=== PATIENT | male | born 1955 | race Caucasian/White ===

== ENCOUNTER 2019-05-29 19:34 | Inpatient (IN) | payer MEDICARE, OTHER ==
[~2019-05-29] VITALS: Ht 172.7 cm; Wt 90.7 kg
[2019-05-29 20:25] LABS: BASO # 0.1 x10^3/uL (0.0-0.2); BASO % 1 % (0-3); EOS # 0.2 x10^3/uL (0.0-0.7); EOS % 2 % (0-3); HEMATOCRIT 50.2 % (39.0-53.0); LYMPH # 1.9 x10^3/uL (1.0-4.8); LYMPH % 21 % (24-48); MEAN CORPUSCULAR HEMOGLOBIN 31 pg (25-35); MEAN CORPUSCULAR HGB CONC 34 g/dL (31-37); MEAN CORPUSCULAR VOLUME 91 fL (79-100); MONO % 11 % (0-9); NEUT # 5.9 x10^3uL (1.8-7.7); NEUT % 65 % (31-73); PLATELET COUNT 358 x10^3/uL (140-400); RED BLOOD COUNT 5.51 x10^6/uL (4.30-5.70); RED CELL DISTRIBUTION WIDTH 13.8 % (11.5-14.5); WHITE BLOOD COUNT 9.1 x10^3/uL (4.0-11.0)
[2019-05-29 20:39] LABS: ALBUMIN 4.2 g/dL (3.4-5.0); ALBUMIN/GLOBULIN RATIO 1.2 (1.0-1.7); CALCIUM 9.6 mg/dL (8.5-10.1); CREATININE 1.2 mg/dL (0.7-1.3); POTASSIUM 3.7 mmol/L (3.5-5.1); TOTAL BILIRUBIN 0.3 mg/dL (0.2-1.0); TOTAL PROTEIN 7.7 g/dL (6.4-8.2)
--- NOTE | 2019-05-29 20:40 | PHYS DOC ---
Past History Past Medical History: Anxiety, COPD, Diabetes, GERD, Migraines, Seizure, Schizophrenia Past Surgical History: Other Additional Past Surgical Histo: SURGICVAL HISTORY NOT INCLUDED IN PAPERWORK Additional Smoking Information: 1/2 PACK/DAY Alcohol Use: None Drug Use: None Adult General Chief Complaint Chief Complaint: PSYCH EVALUATION HPI HPI 64-year-old male presents for medical clearance of behavioral health admission. The patient reported to be acting out having insomnia, and having hallucinations. When asked if he has any medical complaints, the patient states that he has a chronically runny nose for many years but that's all. He denies fever or chills. Review of Systems Review of Systems Constitutional: Denies fever or chills [] Eyes: Denies change in visual acuity, redness, or eye pain [] HENT: Denies nasal congestion or sore throat. Nasal drainage [] Respiratory: Denies cough or shortness of breath [] Cardiovascular: No additional information not addressed in HPI [] GI: Denies abdominal pain, nausea, vomiting, bloody stools or diarrhea [] : Denies dysuria or hematuria [] Musculoskeletal: Denies back pain or joint pain [] Integument: Denies rash or skin lesions [] Neurologic: Denies headache, focal weakness or sensory changes [] Endocrine: Denies polyuria or polydipsia [] All other systems were reviewed and found to be within normal limits, except as documented in this note. Allergies Allergies Allergies Coded Allergies Type Severity Reaction Last Updated Verified No Known Drug Allergies 05/29/19 No Physical Exam Physical Exam Constitutional: Well developed, well nourished, no acute distress, non-toxic appearance. [] HENT: Normocephalic, atraumatic, bilateral external ears normal, oropharynx moist, no oral exudates, nose normal. [] Eyes: PERRLA, EOMI, conjunctiva normal, no discharge. [] Neck: Normal range of motion, no tenderness, supple, no stridor. [] Cardiovascular:Heart rate regular rhythm, no murmur [] Lungs & Thorax: Bilateral breath sounds clear to auscultation [] Abdomen: Bowel sounds normal, soft, no tenderness, no masses, no pulsatile masses. [] Skin: Warm, dry, no erythema, no rash. [] Back: No tenderness, no CVA tenderness. [] Extremities: No tenderness, no cyanosis, no clubbing, ROM intact, no edema. [] Neurologic: Alert and oriented X 3, normal motor function, normal sensory function, no focal deficits noted. [] Psychologic: Affect normal, judgement normal, mood normal. [] Current Patient Data Vital Signs Vital Signs Date Time Temp Pulse Resp B/P (MAP) Pulse Ox O2 Delivery O2 Flow Rate FiO2 05/29/19 19:45 97.6 100 20 98 Room Air Lab Results Laboratory Tests Test 05/29/19 19:55 White Blood Count 9.1 x10^3/uL (4.0-11.0) Red Blood Count 5.51 x10^6/uL (4.30-5.70) Hemoglobin 17.0 g/dL (13.0-17.5) Hematocrit 50.2 % (39.0-53.0) Mean Corpuscular Volume 91 fL (79-100) Mean Corpuscular Hemoglobin 31 pg (25-35) Mean Corpuscular Hemoglobin Concent 34 g/dL (31-37) Red Cell Distribution Width 13.8 % (11.5-14.5) Platelet Count 358 x10^3/uL (140-400) Neutrophils (%) (Auto) 65 % (31-73) Lymphocytes (%) (Auto) 21 % (24-48) L Monocytes (%) (Auto) 11 % (0-9) H Eosinophils (%) (Auto) 2 % (0-3) Basophils (%) (Auto) 1 % (0-3) Neutrophils # (Auto) 5.9 x10^3uL (1.8-7.7) Lymphocytes # (Auto) 1.9 x10^3/uL (1.0-4.8) Monocytes # (Auto) 1.0 x10^3/uL (0.0-1.1) Eosinophils # (Auto) 0.2 x10^3/uL (0.0-0.7) Basophils # (Auto) 0.1 x10^3/uL (0.0-0.2) EKG EKG Sinus rhythm, rate 95, leftward axis, no ST elevations or depressions.[] Radiology/Procedures Radiology/Procedures [] Course & Med Decision Making Course & Med Decision Making Pertinent Labs and Imaging studies reviewed. (See chart for details) The patient's EKG is unremarkable. His labs are unremarkable. His vitals are within normal limits. The patient has been unable to urinate forced because he went in the waiting room. I don't think his urinalysis will preclude his admission. He is medically stable for behavioral health admission at this time. [] Dragon Disclaimer Dragon Disclaimer This electronic medical record was generated, in whole or in part, using a voice recognition dictation system. Departure Departure: Impression: Primary Impression: Medical clearance for psychiatric admission Disposition: HOME/RESIDENCE PRIOR TO ADM Condition: STABLE Referrals: PCP,UNKNOWN (PCP) JOSUE WALSH DO May 29, 2019 20:40
[2019-05-29] MEDS ORDERED: MAGNESIUM HYDROXIDE 2,400 MG/30 ML ORAL.SUSP. PO PRN (22:45)
[2019-05-29] MEDS ORDERED: METHYL SALICYLATE/MENTHOL TOPICAL OINTMENT 57GM TUBE. TP PRN (22:45)
[2019-05-29] MEDS ORDERED: QUET50TA5 PO (23:07)
[2019-05-29] MEDS ORDERED: HALO5TAB PO (23:07)
[2019-05-29] MEDS ORDERED: MELO7.5T29 PO (23:07)
[2019-05-29] MEDS ORDERED: LORA-254 PO (23:07)
[2019-05-29] MEDS ORDERED: CYCL-331 PO (23:07)
[2019-05-29] MEDS ORDERED: PANT40TA5 PO (23:07)
[2019-05-29] MEDS ORDERED: MELA3TAB43 PO (23:07)
[2019-05-29] MEDS ORDERED: BENZ0.5T32 PO (23:07)
[2019-05-29] MEDS ORDERED: MULT-245 PO (23:07)
[2019-05-29] MEDS ORDERED: TOPI50TA38 PO (23:07)
[2019-05-29] MEDS ORDERED: METO25TA4 PO (23:07)
[2019-05-29] MEDS ORDERED: FURO-69 PO (23:07)
[2019-05-29] MEDS ORDERED: HALOPERIDOL 5 MG TABLET PO PRN (23:15)
[2019-05-29] MEDS ORDERED: MELATONIN 3 MG TABLET PO PRN (23:15)
[2019-05-29 23:40] VITALS: BP 149/88
[2019-05-29] MEDS ORDERED: IPRA3AMP29 NEB (23:59)
[2019-05-29] MEDS ORDERED: SUMA100T4 PO (23:59)
[2019-05-29] MEDS ORDERED: ASPI1TAB31 PO (23:59)
[2019-05-29] MEDS ORDERED: BUDE10.2 IH (23:59)
[2019-05-30] MEDS ORDERED: IBUP800T19 PO (00:05)
[2019-05-30] MEDS: MELATONIN 3 MG TABLET PO SCH ×2 (00:05→19:31)
[2019-05-30] MEDS: METOPROLOL TART IMMED RELEASE 25 MG TABLET PO SCH ×3 (00:06→19:31)
[2019-05-30] MEDS: CYCLOBENZAPRINE 10 MG TABLET. PO SCH ×2 (00:06→19:30)
[2019-05-30] MEDS: QUEtiapine 50 MG TABLET. PO SCH ×3 (00:06→19:32)
[2019-05-30] MEDS: HALOPERIDOL 5 MG TABLET PO SCH ×4 (00:07→19:30)
[2019-05-30] MEDS: TOPIRAMATE 25 MG TABLET. PO SCH ×3 (00:07→19:31)
[2019-05-30] MEDS: MELOXICAM 7.5 MG TABLET PO SCH ×3 (00:07→19:30)
[2019-05-30] MEDS ORDERED: IBUPROFEN 800 MG TABLET. PO PRN (00:15)
[2019-05-30 00:22] LABS: BACTERIA,URINE 0 /HPF (0-FEW); BILIRUBIN,URINE NEG (NEG); CLARITY,URINE CLEAR; COLOR,URINE YELLOW; GLUCOSE,URINE NEG (NEG); NITRITE,URINE NEG (NEG); RBC,URINE 0 /HPF (0-2); SQUAMOUS EPITHELIAL CELL,UR OCC /LPF; UROBILINOGEN,URINE 0.2 mg/dL (0.2 mg/dL); WBC,URINE RARE /HPF (0-4)
[2019-05-30 06:19] VITALS: BP 104/68
[2019-05-30] MEDS: LORazepam 0.5 MG TABLET PO SCH (08:11)
[2019-05-30] MEDS: MULTIVITAMIN with MINERAL TABLET. PO SCH (08:18)
[2019-05-30] MEDS: ACETAMINOPHEN 325 MG TABLET PO PRN (08:18)
[2019-05-30] MEDS: BENZTROPINE MESYLATE 0.5 MG TABLET PO SCH ×2 (08:18→19:32)
[2019-05-30] MEDS: NICOTINE 14MG PATCH. TD SCH (08:18)
[2019-05-30] MEDS: PANTOPRAZOLE 40 MG TABLET. PO SCH (08:19)
[2019-05-30] MEDS: FUROSEMIDE 20 MG TABLET PO SCH (08:19)
[2019-05-30] MEDS ORDERED: MELOXICAM 7.5 MG TABLET PO SCH (09:00)
[2019-05-30] MEDS ORDERED: METOPROLOL TART IMMED RELEASE 25 MG TABLET PO SCH (09:00)
[2019-05-30] MEDS ORDERED: TOPIRAMATE 25 MG TABLET. PO SCH (09:00)
[2019-05-30] MEDS ORDERED: QUEtiapine 50 MG TABLET. PO SCH (09:00)
[2019-05-30] MEDS: BUDESONIDE 0.5 MG/2 ML NEBU NEB SCH ×2 (09:34→21:27)
[2019-05-30] MEDS: IPRATRPIUM/ALBUTEROL 0.5/2.5MG 3 ML NEBU. NEB SCH ×3 (09:34→21:27)
--- NOTE | 2019-05-30 09:57 | EKG ---
[address] [address] Test Date: 2019-05-29 Test Time: 20:11:56 Pat Name: SILVANO BARBA Department: Room: [address] [place] [address] Gender: M Air Box Tester: : 1955 Requested By: JOSUE WALSH Order Number: [id number] Reading MD: Measurements Intervals [place] Rate: 95 P: 29 NM: 172 QRS: -71 QRSD: 84 T: 74 QT: 320 QTc: 405 Interpretive Statements SINUS RHYTHM ABNORMAL LEFT AXIS DEVIATION LEFT ANTERIOR FASCICULAR BLOCK T ABNORMALITY IN HIGH LATERAL LEADS ABNORMAL ECG RI6.01 No previous ECG available for comparison
[2019-05-30 16:06] VITALS: BP 132/86
[2019-05-30] MEDS: SUMAtriptan SUCCINATE 50 MG TABLET PO PRN (19:30)
--- NOTE | 2019-05-30 19:53 | PDOC ---
Exam Note: Bennett Note: Please also refer to the separate dictated note~for this date of service dictated separately. Discussed the patient with Nursing staff reviewed the chart.~Reviewed interim history and current functioning. Reviewed vital signs,~Labs/ Radiology~and current medications noted below. Continue current treatment with the changes noted in the dictated addendum note Assessment: Vital Signs/I&O: Vital Signs Date Time Temp Pulse Resp B/P (MAP) Pulse Ox O2 Delivery O2 Flow Rate FiO2 05/30/19 19:31 89 132/86 05/30/19 16:06 97.9 20 99 Nasal Cannula 4.0 I & O 05/29/19 05/29/19 05/30/19 15:00 23:00 07:00 Intake Total 0 ml Balance 0 ml Labs: Laboratory Tests Test 05/29/19 19:55 05/29/19 22:50 White Blood Count 9.1 x10^3/uL (4.0-11.0) Red Blood Count 5.51 x10^6/uL (4.30-5.70) Hemoglobin 17.0 g/dL (13.0-17.5) Hematocrit 50.2 % (39.0-53.0) Mean Corpuscular Volume 91 fL (79-100) Mean Corpuscular Hemoglobin 31 pg (25-35) Mean Corpuscular Hemoglobin Concent 34 g/dL (31-37) Red Cell Distribution Width 13.8 % (11.5-14.5) Platelet Count 358 x10^3/uL (140-400) Neutrophils (%) (Auto) 65 % (31-73) Lymphocytes (%) (Auto) 21 % (24-48) L Monocytes (%) (Auto) 11 % (0-9) H Eosinophils (%) (Auto) 2 % (0-3) Basophils (%) (Auto) 1 % (0-3) Neutrophils # (Auto) 5.9 x10^3uL (1.8-7.7) Lymphocytes # (Auto) 1.9 x10^3/uL (1.0-4.8) Monocytes # (Auto) 1.0 x10^3/uL (0.0-1.1) Eosinophils # (Auto) 0.2 x10^3/uL (0.0-0.7) Basophils # (Auto) 0.1 x10^3/uL (0.0-0.2) Sodium Level 136 mmol/L (136-145) Potassium Level 3.7 mmol/L (3.5-5.1) Chloride Level 100 mmol/L (98-107) Carbon Dioxide Level 23 mmol/L (21-32) Anion Gap 13 (6-14) Blood Urea Nitrogen 15 mg/dL (8-26) Creatinine 1.2 mg/dL (0.7-1.3) Estimated GFR (Cockcroft-Gault) 61.0 BUN/Creatinine Ratio 13 (6-20) Glucose Level 153 mg/dL (70-99) H Calcium Level 9.6 mg/dL (8.5-10.1) Magnesium Level 2.0 mg/dL (1.8-2.4) Total Bilirubin 0.3 mg/dL (0.2-1.0) Aspartate Amino Transferase (AST) 13 U/L (15-37) L Alanine Aminotransferase (ALT) 14 U/L (16-63) L Alkaline Phosphatase 79 U/L (46-116) Total Protein 7.7 g/dL (6.4-8.2) Albumin 4.2 g/dL (3.4-5.0) Albumin/Globulin Ratio 1.2 (1.0-1.7) Urine Collection Type Unknown Urine Color Yellow Urine Clarity Clear Urine pH 6.0 Urine Specific Kinsley <=1.005 Urine Protein Neg (NEG-TRACE) Urine Glucose (UA) Neg mg/dL (NEG) Urine Ketones (Stick) Neg mg/dL (NEG) Urine Blood Neg (NEG) Urine Nitrite Neg (NEG) Urine Bilirubin Neg (NEG) Urine Urobilinogen Dipstick 0.2 mg/dL (0.2 mg/dL) Urine Leukocyte Esterase Neg (NEG) Urine RBC 0 /HPF (0-2) Urine WBC Rare /HPF (0-4) Urine Squamous Epithelial Cells Occ /LPF Urine Bacteria 0 /HPF (0-FEW) Current Medications: Meds: Current Medications Medications (Trade) Dose Ordered Sig/Chris Route PRN Reason Start Time Stop Time Status Last Admin Dose Admin Acetaminophen (Tylenol) 650 mg PRN Q6HRS PRN PO PAIN / TEMP 05/29/19 22:45 05/30/19 08:18 Nicotine (Nicoderm Cq 14mg) 1 patch DAILY TD 05/30/19 09:00 05/30/19 08:18 Benztropine Mesylate (Cogentin) 0.5 mg BID PO 05/30/19 09:00 05/30/19 19:32 Furosemide (Lasix) 20 mg DAILY PO 05/30/19 09:00 05/30/19 08:19 Lorazepam (Ativan) 0.5 mg DAILY PO 05/30/19 09:00 05/30/19 08:11 Pantoprazole Sodium (Protonix) 40 mg DAILYAC PO 05/30/19 07:30 05/30/19 08:19 Multivitamins/ Calcium (Thera-M Plus) 1 tab DAILY PO 05/30/19 09:00 05/30/19 08:18 Haloperidol (Haldol) 5 mg TID PO 05/30/19 00:00 05/30/19 19:30 Cyclobenzaprine HCl (Flexeril) 10 mg HS PO 05/30/19 00:00 05/30/19 19:30 Melatonin (Melatonin) 9 mg HS PO 05/30/19 00:00 05/30/19 19:31 Meloxicam (Mobic) 7.5 mg BID PO 05/30/19 00:00 06/05/19 09:01 05/30/19 19:30 Metoprolol Tartrate (Lopressor) 25 mg BID PO 05/30/19 00:00 05/30/19 19:31 Quetiapine Fumarate (SEROquel) 150 mg BID PO 05/30/19 00:00 05/30/19 19:32 Topiramate (Topamax) 50 mg BID PO 05/30/19 00:00 05/30/19 19:31 Albuterol/ Ipratropium (Duoneb) 3 ml TID NEB 05/30/19 09:00 05/30/19 15:25 Budesonide (Pulmicort) 0.5 mg RTBID NEB 05/30/19 08:00 05/30/19 09:34 Sumatriptan Succinate (Imitrex) 100 mg PRN DAILY PRN PO MIGRAINE HEADACHE 05/30/19 00:15 05/30/19 19:30 I have reviewed the current psychotropics carefully including drug interactions. Risk benefit ratio favors no change other than as noted in my dictated progress note. Diagnosis: Problems: (1) Anxiety disorder (2) Alcoholic psychosis (3) Schizoaffective disorder, chronic condition with acute exacerbation (4) Obsessive compulsive disorder AUGUSTIN QUINTERO MD May 30, 2019 19:53
[2019-05-30] MEDS ORDERED: CYCLOBENZAPRINE 10 MG TABLET. PO SCH (21:00)
[2019-05-30] MEDS ORDERED: MELATONIN 3 MG TABLET PO SCH (21:00)
[2019-05-30 21:06] LABS: THYROXINE 7.9 ug/dL (4.5-12.0)
[2019-05-30 21:37] LABS: THYROID STIM HORMONE (TSH) 2.706 uIU/mL (0.358-3.740)
[2019-05-31 00:07] LABS: HEMOGLOBIN A1C 6.7 % (4.8-5.6)
[2019-05-31] MEDS: IPRATRPIUM/ALBUTEROL 0.5/2.5MG 3 ML NEBU. NEB SCH ×3 (05:20→20:57)
[2019-05-31 06:32] VITALS: BP 109/64
[2019-05-31] MEDS: FLUTICASONE 50MCG/NASAL SPRAY 16GM BOTTLE. NS SCH (08:19)
[2019-05-31] MEDS: METOPROLOL TART IMMED RELEASE 25 MG TABLET PO SCH ×2 (08:20→20:11)
[2019-05-31] MEDS: TOPIRAMATE 25 MG TABLET. PO SCH ×2 (08:20→20:11)
[2019-05-31] MEDS: HALOPERIDOL 5 MG TABLET PO SCH ×3 (08:20→20:12)
[2019-05-31] MEDS: LORazepam 0.5 MG TABLET PO SCH (08:21)
[2019-05-31] MEDS: QUEtiapine 50 MG TABLET. PO SCH ×2 (08:21→20:13)
[2019-05-31] MEDS: CETIRIZINE HCL 10 MG TABLET PO SCH (08:21)
[2019-05-31] MEDS: FUROSEMIDE 20 MG TABLET PO SCH (08:21)
[2019-05-31] MEDS: PANTOPRAZOLE 40 MG TABLET. PO SCH (08:22)
[2019-05-31] MEDS: MULTIVITAMIN with MINERAL TABLET. PO SCH (08:22)
[2019-05-31] MEDS: MELOXICAM 7.5 MG TABLET PO SCH ×2 (08:22→20:11)
[2019-05-31] MEDS: BENZTROPINE MESYLATE 0.5 MG TABLET PO SCH (08:25)
[2019-05-31] MEDS: NICOTINE 14MG PATCH. TD SCH (09:00)
--- NOTE | 2019-05-31 09:16 | CONS ---
DATE OF CONSULTATION: 05/30/2019 REASON FOR CONSULTATION: Medical management. HISTORY OF PRESENT ILLNESS: The patient is a 64-year-old male patient, a resident at [facility], who was admitted on account of increased agitation, insomnia. He hears voices that tell him to do bad things, paranoid thoughts that cause distress and anxiety. He has refused to eat at times. If he does not get to the hospital, he was feeling suicidal, although denied any suicidal ideation, all this in a background of schizoaffective disorder, mixed with psychotic features and impulse control. PAST MEDICAL HISTORY: Significant for hypertension, COPD, gastroesophageal reflux disease, seizure disorder, type 2 diabetes and migraine headaches. PAST PSYCHIATRIC HISTORY: Significant for anxiety, major depressive disorder and schizoaffective disorder. PAST SURGICAL HISTORY: Significant for tonsillectomy. ALLERGIES: He has no known drug allergies. MEDICATIONS: He is currently on following medications: He is on ibuprofen 800 mg every 8 hours p.r.n. as needed for pain, albuterol/ipratropium in 3 mL by nebulizer 3 times a day, multivitamin with calcium 1 tablet once a day, lorazepam 0.5 mg daily, furosemide 20 mg daily, benztropine mesylate, Cogentin 0.5 mg twice a day, Nicoderm patch 14 mg topically once a day, Pulmicort 0.5 mg by nebulizer twice a day, Protonix 40 mg once a day, sumatriptan 100 mg daily p.r.n. for migraine headache, Excedrin Migraine 2 tablets daily p.r.n. for migraine headache, topiramate 50 mg twice a day, quetiapine fumarate for Seroquel 150 mg twice a day, metoprolol tartrate 25 mg p.o. b.i.d. He is on meloxicam 7.5 mg twice a day, melatonin 9 mg at bedtime, cyclobenzaprine 10 mg at bedtime, Haldol 5 mg 3 times a day, magnesium hydroxide for milk of magnesia 30 mL p.o. daily p.r.n. for constipation, and Mylanta 15 mL after meals and as needed. FAMILY HISTORY: He has no brothers and sisters. Both parents are . SOCIAL HISTORY: He is currently a resident at [facility] for the last 5 years. He continued to smoke. He used to be a heavy drinker, now drinks one beer once a week. REVIEW OF SYSTEMS: The patient stated that he has cataracts bilaterally, although did not require any surgical intervention. Denied any glaucoma or macular degeneration. Denied any earache, tinnitus or sensorineural deafness. Denied any nosebleeds. Did complain of nasal dripping and occasional greenish nasal discharge. Denied any sore throat, sore tongue, toothache, hoarseness of voice or difficulty swallowing. Denied any nausea, vomiting, diarrhea or constipation. Denied any hematemesis, melena, hematochezia. Denied any dysuria, frequency or hematuria. Denied any chest pain, shortness of breath, orthopnea, paroxysmal nocturnal dyspnea. Denied any cough, phlegm or hemoptysis. Does complain of dyspnea on exertion. He is on 2 liters of oxygen at bedtime and 4 liters during daytime as needed. PHYSICAL EXAMINATION: GENERAL: When I examined him this afternoon, he was sitting at the edge of the bed comfortably in no apparent distress. He was somewhat suffused, but there was no pallor, jaundice, cyanosis or thyromegaly. No jugular venous distention. No limb edema. VITAL SIGNS: His heart rate was 77, blood pressure was 104/68, temperature was 96.9, respiratory rate was 24, and oxygen saturation was 96% on 2 liters of oxygen. HEAD, EYES, EARS, NOSE AND THROAT: Showed normocephalic, atraumatic. NECK: Supple. HEART: Showed normal first and second heart sounds with no gallop or murmur. CHEST: Clear to auscultation. No crepitation or rhonchi. ABDOMEN: Distended, soft, nontender. NEUROLOGIC: He was awake, alert, responding appropriately. All cranial nerves intact. EXTREMITIES: He moves extremities without difficulty. He is mostly bed bound, wheelchair bound. He stated that he can ambulate for a short distance but was extremely short of breath. LABORATORY DATA: His lab work on admission showed a white cell count of 9100, hemoglobin 17, hematocrit 50, MCV 91, and platelet count 358,000. His serum sodium was 136, potassium 3.7, chloride 100, bicarbonate 23, anion gap of 13, BUN 15, creatinine 1.2, estimated GFR was 61 mL per minute. His glucose was 153, calcium was 9.6, magnesium 2. Total bilirubin, AST, ALT, alkaline phosphatase were normal. Total protein was 7.7, albumin was 4.2. His urinalysis showed the urine was yellow, clear with a pH of 6, specific gravity 1.005. The urine was negative for protein, glucose, ketones, blood, nitrite, bilirubin, leukocyte esterase. There are no rbc's, no wbc's, and no bacteria. ASSESSMENT AND PLAN: In summary, this is a 64-year-old male patient, a resident at [facility], who was admitted on account of increased agitation, insomnia, hears voices that tell him to do bad things, paranoid thoughts that caused distress, anxious, refused to eat at times. If he does not get to the hospital, he would feel suicidal, all this in a background of schizoaffective disorder, mixed with psychotic features and impulse control disorder. Medically, he is known to have high blood pressure, chronic obstructive pulmonary disease, gastroesophageal reflux disease, seizure disorder, type 2 diabetes, migraine headaches. All in all, the patient seems to be medically stable. I will start him on Flonase for his constant nasal dripping as well as Claritin or Zyrtec. He is on multiple anti-inflammatory medications, including meloxicam and ibuprofen and this obviously can have side effects that in the long run can be harmful. I will also follow his lab works that are still pending and make any necessary recommendation. Thank you, Dr. Smiley for allowing me to participate in the care of this patient. RENE MACIAS MD DR: TAMMY/junior JOB#: [id number] / [id number]
[2019-05-31] MEDS: BUDESONIDE 0.5 MG/2 ML NEBU NEB SCH ×2 (10:07→20:57)
--- NOTE | 2019-05-31 12:31 | RAD ---
STUDY: CT head without contrast INDICATION: Hallucinations. COMPARISON: None. TECHNIQUE: Axial CT imaging through the head without the use of intravenous contrast. Sagittal and coronal reformats were obtained. One or more of the following individualized dose reduction techniques were utilized for this examination: 1. Automated exposure control 2. Adjustment of the mA and/or kV according to patient size 3. Use of iterative reconstruction technique. FINDINGS: No nugent-white matter differentiation loss is identified. No mass effect, midline shift or hydrocephalus. No acute intracranial hemorrhage. Unremarkable scalp and orbits. Normally aerated mastoid air cells and visualized paranasal sinuses. The calvarium is intact. IMPRESSION: No acute intracranial abnormality by CT. Electronically signed by: SWAPNIL NIX MD (05/31/2019 12:28 PM) [facility]
[2019-05-31 15:42] VITALS: BP 114/76
--- NOTE | 2019-05-31 15:45 | HP ---
ADMIT DATE: 05/29/2019 PSYCHIATRIC PROGRESS NOTE This late entry 05/30/2019 covers elements not covered in my initial note. IDENTIFYING DATA: The patient is a 64-year-old male referred to us from [facility] by his primary care physician on account of increasing agitation, marked insomnia, hearing voices that tell him to do bad things. Reportedly, the patient has had paranoid thought that caused distress. He has been anxious, refusing to eat at times and expressing suicidal ideation. The patient's behaviors have been dangerous really concerning to the staff at the facility given the suicidal ideation, having failed outpatient psychiatric interventions. He is referred for inpatient psychiatric stabilization. CHIEF COMPLAINT: "I have been hearing voices for about 10-15 years. I used to drink very heavy in the past and yes I have had blackouts, hallucinations, shakes with the alcohol. I have not had anything to drink for some time." HISTORY OF PRESENT ILLNESS: The patient reportedly has a history of schizoaffective disorder, bipolar type, mixed with psychotic features. He describes himself as being quite obsessive and states the voices are inside his head with ruminative thinking, which perseverates and magnifies itself to where it seems real voices to him. He has had significant insomnia, marked mood vacillation. No active suicidal or homicidal ideation. He does have fleeting suicidal ideation and felt overwhelmed with the at the facility. PAST PSYCHIATRIC HISTORY: As above. MEDICAL HISTORY: Hypertension, COPD, GERD, seizure disorder, type 2 diabetes mellitus, migraine headaches. Accu-Cheks b.i.d. DIET: Carb control. Takes medications whole. Ambulates wheelchair, can self-propel. CODE STATUS: Full code. ALLERGIES: Negative. CURRENT PSYCHOTROPICS: Ativan 0.25 mg daily at 0600, 1100; Haldol 5 mg 3 times a day, melatonin 9 mg at bedtime, Seroquel 150 b.i.d., Cogentin 0.5 mg b.i.d., Topamax 50 mg b.i.d. FAMILY HISTORY: Noncontributory. SOCIAL HISTORY: Alcohol abuse noted above and he also admits to smoking marijuana. No physical, sexual or elder abuse history is noted. Not known to be a perpetrator. REACTION TO HOSPITALIZATION: The patient accepting of it. ASSETS: Stable living at the facility. MENTAL STATUS EXAMINATION: The patient was seen individually in the evening of 05/30/2019. I met with him at length in his room. He is reasonably oriented. Speech has some latency, often responses monosyllabic, coherent. Abstraction fair, computation impaired, language function intact. Mood is somewhat dysphoric, depressed, anxious, withdrawn. No active suicidal or homicidal ideation. Attention span short. IMPRESSION: Schizoaffective disorder, bipolar type, mixed with psychotic features with acute exacerbation of obsessive compulsive disorder; history of alcohol dependence, in partial remission; anxiety disorder, unspecified. Rest as above. PLAN: Admit to geropsychiatry unit at [facility]. I will see the patient daily individually from a psychiatric standpoint. Medical follow up with Dr. Jordan. Given his active questionable psychotic symptoms, we will have a CT head done without contrast if one has not been done recently, observe him baseline, then adjust psychotropics as clinically indicated. He may benefit from being treated for his OCD symptoms. Perhaps Luvox may be an option while adjusting the Seroquel and Haldol and may consider mood stabilizers as well depending on the results from the baseline assessment. ESTIMATED LENGTH OF STAY: 10-12 days. DISPOSITION: Plans back to [facility] when stable. MAN Keisha QUINTERO MD DR: MADI/junior JOB#: [id number] / [id number]
[2019-05-31] MEDS: CHOLECALCIFEROL (VITAMIN D3) 50,000 UNIT CAPSULE PO SCH (18:40)
--- NOTE | 2019-05-31 19:52 | PDOC ---
Exam Note: Bennett Note: Please also refer to the separate dictated note~for this date of service dictated separately.~Patient seen individually. Discussed the patient with Nursing staff reviewed the chart.~Reviewed interim history and current functioning. Reviewed vital signs,~Labs/ Radiology~and current medications noted below. Continue current treatment with the changes noted in the dictated addendum note Assessment: Vital Signs/I&O: Vital Signs Date Time Temp Pulse Resp B/P (MAP) Pulse Ox O2 Delivery O2 Flow Rate FiO2 05/31/19 15:42 97.6 94 18 114/76 (89) 96 05/31/19 10:35 Nasal Cannula 2.0 I & O 05/30/19 05/30/19 05/31/19 15:00 23:00 07:00 Intake Total 960 ml 600 ml Balance 960 ml 600 ml Current Medications: Meds: Current Medications Medications (Trade) Dose Ordered Sig/Chris Route PRN Reason Start Time Stop Time Status Last Admin Dose Admin Cetirizine HCl (ZyrTEC) 10 mg DAILY PO 05/31/19 09:00 05/31/19 08:21 Fluticasone Propionate (Flonase) 2 spray DAILY NS 05/31/19 09:00 05/31/19 08:19 Vitamin D (Vitamin D3) 50,000 unit WEEKLY PO 05/31/19 18:00 05/31/19 18:40 I have reviewed the current psychotropics carefully including drug interactions. Risk benefit ratio favors no change other than as noted in my dictated progress note. Diagnosis: Problems: (1) Anxiety disorder (2) Alcoholic psychosis (3) Schizoaffective disorder, chronic condition with acute exacerbation (4) Obsessive compulsive disorder AUGUSTIN QUINTERO MD May 31, 2019 19:52
[2019-05-31] MEDS: MELATONIN 3 MG TABLET PO SCH (20:11)
[2019-05-31] MEDS: CYCLOBENZAPRINE 10 MG TABLET. PO SCH (20:11)
[2019-05-31] MEDS: SUMAtriptan SUCCINATE 50 MG TABLET PO PRN (20:18)
[2019-05-31] MEDS ORDERED: guaiFENesin DM 200MG/20MG 10 ML SYRUP PO PRN (20:45)
[2019-06-01] MEDS: IPRATRPIUM/ALBUTEROL 0.5/2.5MG 3 ML NEBU. NEB SCH ×3 (05:38→20:53)
[2019-06-01] MEDS: BUDESONIDE 0.5 MG/2 ML NEBU NEB SCH ×2 (05:38→20:00)
[2019-06-01 05:47] VITALS: BP 101/67
[2019-06-01] MEDS: LORazepam 0.5 MG TABLET PO SCH (08:33)
[2019-06-01] MEDS: PANTOPRAZOLE 40 MG TABLET. PO SCH (08:33)
[2019-06-01] MEDS: METOPROLOL TART IMMED RELEASE 25 MG TABLET PO SCH ×2 (08:35→19:45)
[2019-06-01] MEDS: FUROSEMIDE 20 MG TABLET PO SCH (08:35)
[2019-06-01] MEDS: HALOPERIDOL 5 MG TABLET PO SCH ×2 (08:35→19:45)
[2019-06-01] MEDS: NICOTINE 14MG PATCH. TD SCH ×2 (08:36→08:49)
[2019-06-01] MEDS: CETIRIZINE HCL 10 MG TABLET PO SCH (08:36)
[2019-06-01] MEDS: MELOXICAM 7.5 MG TABLET PO SCH ×2 (08:36→19:44)
[2019-06-01] MEDS: MULTIVITAMIN with MINERAL TABLET. PO SCH (08:36)
[2019-06-01] MEDS: TOPIRAMATE 25 MG TABLET. PO SCH ×2 (08:36→19:45)
[2019-06-01] MEDS: QUEtiapine 50 MG TABLET. PO SCH ×2 (08:36→19:45)
[2019-06-01] MEDS: FLUTICASONE 50MCG/NASAL SPRAY 16GM BOTTLE. NS SCH (08:57)
[2019-06-01] MEDS ORDERED: BENZTROPINE MESYLATE 0.5 MG TABLET PO SCH (09:00)
--- NOTE | 2019-06-01 10:42 | PN ---
DATE: 05/31/2019 PSYCHIATRIC PROGRESS NOTE This late entry 05/31/2019 covers elements not covered in my initial note. SUBJECTIVE: I met with the patient in the evening. Per ALICJA Valentin, the patient is alert, oriented x 4. Appetite 80%, slept 4-1/2 hours previous night. We did do a CT head, no acute changes noted. He did take a nap in the evening, pleasant, withdrawn. REVIEW OF SYSTEMS: Ambulation impaired, in wheelchair. No CV, , pulmonary, eye, ENT system symptoms on review. MENTAL STATUS EXAM: Oriented reasonably. Speech has some latency, coherent. Abstraction fair, computation impaired, language function intact. Mood and affect withdrawn. LABORATORY DATA: Reviewed. IMPRESSION: Schizoaffective disorder, bipolar type, mixed with psychotic features, obsessive-compulsive disorder; anxiety disorder, unspecified. Rest unchanged from admission. PLAN: The patient is currently on Haldol 5 mg t.i.d. We will reduce to b.i.d. for 2 days, once a day for 2 days and then stop it. I had initially considered tapering the Cogentin since it appeared to have been for the EPS from Haldol, but on further questioning, the patient states he started Cogentin for tremors, even before the Haldol was initiated. As at the time of this dictation, we will therefore undo that order. He remains somewhat obsessive, ruminative. We will start Luvox 25 mg a day for 3 days, then 50 mg a day thereafter. MENTAL STATUS EXAMINATION: Reasonably oriented. Speech has some latency, coherent. Abstraction fair, computation somewhat impaired, language function intact. Mood and affect withdrawn. IMPRESSION: Unchanged from initial note. PLAN: As noted above. MAN Keisha QUINTERO MD DR: MADI/junior JOB#: [id number] / [id number]
--- NOTE | 2019-06-01 10:50 | PN ---
DATE: 06/01/2019 PSYCHIATRIC PROGRESS NOTE This note covers elements not covered in my initial note of 06/01/2019. SUBJECTIVE: I met with the patient in the morning. Overall, per nursing report, the patient slept 7-1/4 hours previous night. He remains somewhat withdrawn, but otherwise appropriate. Still has the obsessive thinking and ruminative thinking, which mass grades as possible hallucinations. REVIEW OF SYSTEMS: Ambulation impaired, in wheelchair. No CV, , pulmonary, eye system symptoms on review. MENTAL STATUS EXAM: Reasonably oriented. Speech is coherent, abstraction fair, computation impaired, language function intact. Mood and affect somewhat withdrawn. LABORATORY DATA: Reviewed. IMPRESSION: Schizoaffective disorder, bipolar type, mixed with psychotic features, obsessive-compulsive disorder; anxiety disorder, unspecified. Rest unchanged. PLAN: We will undo the Cogentin taper for reasons noted in my prior note. Initiate Luvox increasing gradually, taper the Haldol. Rest unchanged for now. MAN Keisha QUINTERO MD DR: MADI/junior JOB#: [id number] / [id number]
[2019-06-01] MEDS: SUMAtriptan SUCCINATE 50 MG TABLET PO PRN (15:03)
[2019-06-01 16:14] VITALS: BP 111/63
--- NOTE | 2019-06-01 18:01 | RAD ---
CHEST AP ONLY History: Cough, diminished lung sounds Comparison: None. Findings: Single view of the chest is submitted. Cardiac silhouette is within normal limits. There is mild linear bibasilar opacity likely mild atelectasis. There is no dependent pleural fluid or pneumothorax. There is suspected emphysema. Impression: 1. There is probable emphysema. There is mild bibasilar atelectasis. Electronically signed by: Aris Marquis MD (06/01/2019 5:58 PM) [facility]
[2019-06-01] MEDS: MELATONIN 3 MG TABLET PO SCH (19:44)
[2019-06-01] MEDS: CYCLOBENZAPRINE 10 MG TABLET. PO SCH (19:44)
[2019-06-01] MEDS: BENZTROPINE MESYLATE 0.5 MG TABLET PO SCH (19:46)
[2019-06-01] MEDS: ACETAMINOPHEN 325 MG TABLET PO PRN (20:01)
--- NOTE | 2019-06-01 20:37 | PDOC ---
Exam Note: Bennett Note: Please also refer to the separate dictated note~for this date of service dictated separately.~Patient seen individually. Discussed the patient with Nursing staff reviewed the chart.~Reviewed interim history and current functioning. Reviewed vital signs,~Labs/ Radiology~and current medications noted below. Continue current treatment with the changes noted in the dictated addendum note Assessment: Vital Signs/I&O: Vital Signs Date Time Temp Pulse Resp B/P (MAP) Pulse Ox O2 Delivery O2 Flow Rate FiO2 06/01/19 19:45 82 111/63 06/01/19 16:14 97.5 18 94 06/01/19 14:50 Room Air 06/01/19 05:38 6.0 I & O 05/31/19 05/31/19 06/01/19 15:00 23:00 07:00 Intake Total 960 ml 480 ml Balance 960 ml 480 ml Current Medications: Meds: Current Medications Medications (Trade) Dose Ordered Sig/Chris Route PRN Reason Start Time Stop Time Status Last Admin Dose Admin Benztropine Mesylate (Cogentin) 0.5 mg DAILY PO 06/01/19 09:00 06/04/19 08:59 06/01/19 08:34 Haloperidol (Haldol) 5 mg BID PO 05/31/19 21:00 06/02/19 20:59 06/01/19 19:45 Fluvoxamine Maleate (Luvox) 25 mg DAILY PO 06/01/19 09:00 06/04/19 08:59 06/01/19 08:35 Guaifenesin (Robitussin Dm) 5 ml PRN Q4HRS PRN PO COUGH 05/31/19 20:45 05/31/19 22:16 Benztropine Mesylate (Cogentin) 0.5 mg BID PO 06/01/19 21:00 06/01/19 19:46 I have reviewed the current psychotropics carefully including drug interactions. Risk benefit ratio favors no change other than as noted in my dictated progress note. Diagnosis: Problems: (1) Anxiety disorder (2) Alcoholic psychosis (3) Schizoaffective disorder, chronic condition with acute exacerbation (4) Obsessive compulsive disorder AUGUSTIN QUINTERO MD Jun 01, 2019 20:37
[2019-06-02] MEDS: IPRATRPIUM/ALBUTEROL 0.5/2.5MG 3 ML NEBU. NEB SCH ×3 (05:28→23:15)
[2019-06-02 06:28] VITALS: BP 102/70
[2019-06-02] MEDS: MULTIVITAMIN with MINERAL TABLET. PO SCH (08:58)
[2019-06-02] MEDS: FLUTICASONE 50MCG/NASAL SPRAY 16GM BOTTLE. NS SCH (08:58)
[2019-06-02] MEDS: HALOPERIDOL 5 MG TABLET PO SCH (08:59)
[2019-06-02] MEDS: LORazepam 0.5 MG TABLET PO SCH (08:59)
[2019-06-02] MEDS: QUEtiapine 50 MG TABLET. PO SCH ×2 (08:59→19:44)
[2019-06-02] MEDS: PANTOPRAZOLE 40 MG TABLET. PO SCH (08:59)
[2019-06-02] MEDS: FUROSEMIDE 20 MG TABLET PO SCH (08:59)
[2019-06-02] MEDS: CETIRIZINE HCL 10 MG TABLET PO SCH (08:59)
[2019-06-02] MEDS: MELOXICAM 7.5 MG TABLET PO SCH ×2 (09:00→19:43)
[2019-06-02] MEDS: BENZTROPINE MESYLATE 0.5 MG TABLET PO SCH ×2 (09:00→19:43)
[2019-06-02] MEDS: NICOTINE 14MG PATCH. TD SCH (09:00)
[2019-06-02] MEDS: TOPIRAMATE 25 MG TABLET. PO SCH ×2 (09:00→19:44)
[2019-06-02] MEDS: METOPROLOL TART IMMED RELEASE 25 MG TABLET PO SCH ×2 (09:01→19:43)
[2019-06-02] MEDS: POLYVINYL ALCOHOL 1.4% OPHTH SOLUTION 15ML BOTTLE. OU PRN ×2 (09:09→16:16)
[2019-06-02] MEDS: BUDESONIDE 0.5 MG/2 ML NEBU NEB SCH ×2 (11:42→23:15)
[2019-06-02 15:34] VITALS: BP 138/87
[2019-06-02] MEDS: MELATONIN 3 MG TABLET PO SCH (19:44)
[2019-06-02] MEDS: CYCLOBENZAPRINE 10 MG TABLET. PO SCH (19:44)
[2019-06-02] MEDS: SUMAtriptan SUCCINATE 50 MG TABLET PO PRN (19:46)
--- NOTE | 2019-06-02 20:05 | PDOC ---
Exam Note: Bennett Note: Please also refer to the separate dictated note~for this date of service dictated separately.~Patient seen individually. Discussed the patient with Nursing staff reviewed the chart.~Reviewed interim history and current functioning. Reviewed vital signs,~Labs/ Radiology~and current medications noted below. Continue current treatment with the changes noted in the dictated addendum note Assessment: Vital Signs/I&O: Vital Signs Date Time Temp Pulse Resp B/P (MAP) Pulse Ox O2 Delivery O2 Flow Rate FiO2 06/02/19 19:43 96 138/87 06/02/19 15:34 98.3 18 94 06/02/19 12:40 Venturi Mask 06/01/19 05:38 6.0 I & O 06/01/19 06/01/19 06/02/19 14:59 22:59 06:59 Intake Total 480 ml 1080 ml Balance 480 ml 1080 ml Current Medications: Meds: Current Medications Medications (Trade) Dose Ordered Sig/Chris Route PRN Reason Start Time Stop Time Status Last Admin Dose Admin Benztropine Mesylate (Cogentin) 0.5 mg BID PO 06/01/19 21:00 06/02/19 19:43 I have reviewed the current psychotropics carefully including drug interactions. Risk benefit ratio favors no change other than as noted in my dictated progress note. Diagnosis: Problems: (1) Anxiety disorder (2) Alcoholic psychosis (3) Schizoaffective disorder, chronic condition with acute exacerbation (4) Obsessive compulsive disorder AUGUSTIN QUINTERO MD Jun 02, 2019 20:05
[2019-06-03] MEDS: POLYVINYL ALCOHOL 1.4% OPHTH SOLUTION 15ML BOTTLE. OU PRN ×3 (02:32→19:42)
[2019-06-03] MEDS: IPRATRPIUM/ALBUTEROL 0.5/2.5MG 3 ML NEBU. NEB SCH ×2 (05:19→21:00)
[2019-06-03 05:58] VITALS: BP 116/75
[2019-06-03] MEDS: PANTOPRAZOLE 40 MG TABLET. PO SCH (08:15)
[2019-06-03] MEDS: FLUTICASONE 50MCG/NASAL SPRAY 16GM BOTTLE. NS SCH (08:15)
[2019-06-03] MEDS: FUROSEMIDE 20 MG TABLET PO SCH (08:16)
[2019-06-03] MEDS: LORazepam 0.5 MG TABLET PO SCH (08:16)
[2019-06-03] MEDS: HALOPERIDOL 5 MG TABLET PO SCH (08:16)
[2019-06-03] MEDS: BENZTROPINE MESYLATE 0.5 MG TABLET PO SCH ×2 (08:16→19:44)
[2019-06-03] MEDS: MELOXICAM 7.5 MG TABLET PO SCH ×2 (08:17→19:43)
[2019-06-03] MEDS: METOPROLOL TART IMMED RELEASE 25 MG TABLET PO SCH ×2 (08:17→19:43)
[2019-06-03] MEDS: QUEtiapine 50 MG TABLET. PO SCH ×2 (08:18→19:42)
[2019-06-03] MEDS: MULTIVITAMIN with MINERAL TABLET. PO SCH (08:18)
[2019-06-03] MEDS: TOPIRAMATE 25 MG TABLET. PO SCH ×2 (08:18→19:42)
[2019-06-03] MEDS: CETIRIZINE HCL 10 MG TABLET PO SCH (08:18)
[2019-06-03] MEDS: ASA/APAP/CAFFEINE 250/250/65MG TABLET. PO PRN (08:41)
[2019-06-03] MEDS: NICOTINE 14MG PATCH. TD SCH (09:00)
[2019-06-03 15:50] VITALS: BP 128/84
[2019-06-03] MEDS: SUMAtriptan SUCCINATE 50 MG TABLET PO PRN (19:42)
[2019-06-03] MEDS: CYCLOBENZAPRINE 10 MG TABLET. PO SCH (19:43)
[2019-06-03] MEDS: MELATONIN 3 MG TABLET PO SCH (19:44)
[2019-06-03] MEDS: BUDESONIDE 0.5 MG/2 ML NEBU NEB SCH ×2 (20:00→23:15)
[2019-06-03] MEDS: DOCUSATE SODIUM 100 MG CAPSULE PO SCH ×2 (20:13→21:00)
--- NOTE | 2019-06-03 21:54 | PDOC ---
Exam Note: Bennett Note: Please also refer to the separate dictated note~for this date of service dictated separately.~Patient seen individually. Discussed the patient with Nursing staff reviewed the chart.~Reviewed interim history and current functioning. Reviewed vital signs,~Labs/ Radiology~and current medications noted below. Continue current treatment with the changes noted in the dictated addendum note Assessment: Vital Signs/I&O: Vital Signs Date Time Temp Pulse Resp B/P (MAP) Pulse Ox O2 Delivery O2 Flow Rate FiO2 06/03/19 20:40 97 Venturi Mask 06/03/19 19:43 91 128/84 06/03/19 15:50 97.6 18 06/01/19 05:38 6.0 I & O 06/02/19 06/02/19 06/03/19 15:00 23:00 07:00 Intake Total 1080 ml 840 ml Balance 1080 ml 840 ml Current Medications: Meds: Current Medications Medications (Trade) Dose Ordered Sig/Chris Route PRN Reason Start Time Stop Time Status Last Admin Dose Admin Haloperidol (Haldol) 5 mg DAILY PO 06/03/19 09:00 06/05/19 08:59 06/03/19 08:16 Docusate Sodium (Colace) 100 mg BID PO 06/03/19 20:00 06/03/19 20:13 I have reviewed the current psychotropics carefully including drug interactions. Risk benefit ratio favors no change other than as noted in my dictated progress note. Diagnosis: Problems: (1) Anxiety disorder (2) Alcoholic psychosis (3) Schizoaffective disorder, chronic condition with acute exacerbation (4) Obsessive compulsive disorder AUGUSTIN QUINTERO MD Jun 03, 2019 21:54
[2019-06-04] MEDS: IPRATRPIUM/ALBUTEROL 0.5/2.5MG 3 ML NEBU. NEB SCH ×3 (05:34→20:52)
[2019-06-04 05:58] VITALS: BP 159/96
[2019-06-04] MEDS: BUDESONIDE 0.5 MG/2 ML NEBU NEB SCH ×2 (08:00→20:00)
[2019-06-04] MEDS: MULTIVITAMIN with MINERAL TABLET. PO SCH (08:05)
[2019-06-04] MEDS: DOCUSATE SODIUM 100 MG CAPSULE PO SCH ×2 (08:05→20:19)
[2019-06-04] MEDS: CETIRIZINE HCL 10 MG TABLET PO SCH (08:05)
[2019-06-04] MEDS: HALOPERIDOL 5 MG TABLET PO SCH (08:05)
[2019-06-04] MEDS: FUROSEMIDE 20 MG TABLET PO SCH (08:06)
[2019-06-04] MEDS: METOPROLOL TART IMMED RELEASE 25 MG TABLET PO SCH ×2 (08:06→20:19)
[2019-06-04] MEDS: QUEtiapine 50 MG TABLET. PO SCH ×2 (08:07→20:18)
[2019-06-04] MEDS: NICOTINE 14MG PATCH. TD SCH ×2 (08:07→08:13)
[2019-06-04] MEDS: FLUTICASONE 50MCG/NASAL SPRAY 16GM BOTTLE. NS SCH (08:07)
[2019-06-04] MEDS: TOPIRAMATE 25 MG TABLET. PO SCH ×2 (08:07→20:19)
[2019-06-04] MEDS: MELOXICAM 7.5 MG TABLET PO SCH ×2 (08:07→20:19)
[2019-06-04] MEDS: PANTOPRAZOLE 40 MG TABLET. PO SCH (08:07)
[2019-06-04] MEDS: BENZTROPINE MESYLATE 0.5 MG TABLET PO SCH ×2 (08:08→20:19)
[2019-06-04] MEDS: LORazepam 0.5 MG TABLET PO SCH (08:12)
[2019-06-04] MEDS: POLYVINYL ALCOHOL 1.4% OPHTH SOLUTION 15ML BOTTLE. OU PRN ×2 (08:14→20:19)
[2019-06-04] MEDS ORDERED: NICOTINE 14MG PATCH. TD PRN (13:45)
[2019-06-04 16:11] VITALS: BP 140/79
[2019-06-04] MEDS: SUMAtriptan SUCCINATE 50 MG TABLET PO PRN (16:20)
[2019-06-04 19:44] VITALS: BP 153/96
[2019-06-04] MEDS: MELATONIN 3 MG TABLET PO SCH (20:19)
[2019-06-04] MEDS: CYCLOBENZAPRINE 10 MG TABLET. PO SCH (20:19)
[2019-06-04] MEDS: MAG HYDROX/AL HYDROX/SIMETH 30 ML ORAL.SUSP PO PRN (20:28)
--- NOTE | 2019-06-04 20:36 | PDOC ---
Exam Note: Bennett Note: Please also refer to the separate dictated note~for this date of service dictated separately.~Patient seen individually. Discussed the patient with Nursing staff reviewed the chart.~Reviewed interim history and current functioning. Reviewed vital signs,~Labs/ Radiology~and current medications noted below. Continue current treatment with the changes noted in the dictated addendum note Assessment: Vital Signs/I&O: Vital Signs Date Time Temp Pulse Resp B/P (MAP) Pulse Ox O2 Delivery O2 Flow Rate FiO2 06/04/19 20:19 85 153/96 06/04/19 19:44 97.9 18 96 Room Air 06/01/19 05:38 6.0 I & O 06/03/19 06/03/19 06/04/19 15:00 23:00 07:00 Intake Total 1320 ml 1920 ml Balance 1320 ml 1920 ml Current Medications: Meds: Current Medications Medications (Trade) Dose Ordered Sig/Chris Route PRN Reason Start Time Stop Time Status Last Admin Dose Admin Fluvoxamine Maleate (Luvox) 50 mg DAILY PO 06/04/19 09:00 06/04/19 08:06 I have reviewed the current psychotropics carefully including drug interactions. Risk benefit ratio favors no change other than as noted in my dictated progress note. Diagnosis: Problems: (1) Anxiety disorder (2) Alcoholic psychosis (3) Schizoaffective disorder, chronic condition with acute exacerbation (4) Obsessive compulsive disorder AUGUSTIN QUINTERO MD Jun 04, 2019 20:36
[2019-06-05] MEDS: ONDANSETRON ODT 4 MG TAB.RAPDIS PO PRN ×3 (00:27→11:47)
[2019-06-05] MEDS: LOPERAMIDE 2 MG CAPSULE PO PRN ×3 (02:52→11:47)
--- NOTE | 2019-06-05 02:58 | PN ---
DATE: 06/03/2019 PSYCHIATRIC PROGRESS NOTE. This late entry of 06/03/2019 covers the elements not covered in my initial note. SUBJECTIVE: I met with the patient individually. The patient slept 7 hours previous night. Overall, the patient remains somewhat withdrawn. Denies any worsening hallucinations since the Haldol is being tapered. REVIEW OF SYSTEMS: Ambulation impaired, in wheelchair. No CV, , pulmonary, eye, ENT system symptoms on review. MENTAL STATUS EXAM: Reasonably oriented. Speech is coherent, has some latency. Abstraction fair, computation impaired, language function intact. Mood and affect withdrawn at times. LABORATORY DATA: Reviewed. IMPRESSION: Unchanged from initial note. PLAN: No change from initial note. AUGUSTIN QUINTERO MD DR: MADI/junior JOB#: [id number] / [id number]
--- NOTE | 2019-06-05 02:59 | PN ---
DATE: 06/02/2019 PSYCHIATRIC PROGRESS NOTE. This late entry of 06/02/2019 covers the elements not covered in my initial note. SUBJECTIVE: I met with the patient individually. The patient slept 7-1/4 hours previous night. He remains somewhat withdrawn, but denies active hallucinations. Does have the obsessive thoughts, which he refers to as the voices, but they are inside his head. REVIEW OF SYSTEMS: No CV, , pulmonary, eye system symptoms on review. MENTAL STATUS EXAM: The patient is reasonably oriented. Speech is coherent, abstraction fair, computation impaired, language function intact, attention span short. Mood and affect somewhat withdrawn. LABORATORY DATA: Reviewed. IMPRESSION: Unchanged from initial note. PLAN: No change from initial note. MAN Keisha QUINTERO MD DR: MADI/junior JOB#: [id number] / [id number]
[2019-06-05] MEDS: ACETAMINOPHEN 325 MG TABLET PO PRN (05:00)
[2019-06-05] MEDS: IPRATRPIUM/ALBUTEROL 0.5/2.5MG 3 ML NEBU. NEB SCH ×3 (05:06→21:00)
[2019-06-05 06:15] VITALS: BP 113/72
[2019-06-05 06:25] LABS: BASO % 0 % (0-3); EOS # 0.1 x10^3/uL (0.0-0.7); EOS % 2 % (0-3); HEMATOCRIT 45.3 % (39.0-53.0); HEMOGLOBIN 15.5 g/dL (13.0-17.5); LYMPH # 0.7 x10^3/uL (1.0-4.8); LYMPH % 8 % (24-48); MEAN CORPUSCULAR HEMOGLOBIN 31 pg (25-35); MEAN CORPUSCULAR HGB CONC 34 g/dL (31-37); MEAN CORPUSCULAR VOLUME 91 fL (79-100); MONO # 0.7 x10^3/uL (0.0-1.1); MONO % 9 % (0-9); NEUT % 82 % (31-73); PLATELET COUNT 296 x10^3/uL (140-400); RED BLOOD COUNT 4.96 x10^6/uL (4.30-5.70); RED CELL DISTRIBUTION WIDTH 13.9 % (11.5-14.5); WHITE BLOOD COUNT 8.6 x10^3/uL (4.0-11.0)
[2019-06-05 06:38] LABS: ALBUMIN 3.6 g/dL (3.4-5.0); ALBUMIN/GLOBULIN RATIO 1.2 (1.0-1.7); CALCIUM 8.8 mg/dL (8.5-10.1); CREATININE 1.1 mg/dL (0.7-1.3); GFR 67.4; MAGNESIUM 1.8 mg/dL (1.8-2.4); POTASSIUM 3.5 mmol/L (3.5-5.1); TOTAL BILIRUBIN 0.5 mg/dL (0.2-1.0); TOTAL PROTEIN 6.5 g/dL (6.4-8.2)
[2019-06-05] MEDS: BENZTROPINE MESYLATE 0.5 MG TABLET PO SCH ×2 (09:00→19:59)
[2019-06-05] MEDS: DOCUSATE SODIUM 100 MG CAPSULE PO SCH ×2 (09:10→19:59)
[2019-06-05] MEDS: MELOXICAM 7.5 MG TABLET PO SCH (09:11)
[2019-06-05] MEDS: METOPROLOL TART IMMED RELEASE 25 MG TABLET PO SCH ×2 (09:11→19:58)
[2019-06-05] MEDS: MULTIVITAMIN with MINERAL TABLET. PO SCH (09:11)
[2019-06-05] MEDS: PANTOPRAZOLE 40 MG TABLET. PO SCH (09:12)
[2019-06-05] MEDS: FUROSEMIDE 20 MG TABLET PO SCH (09:12)
[2019-06-05] MEDS: QUEtiapine 50 MG TABLET. PO SCH ×2 (09:13→19:57)
[2019-06-05] MEDS: TOPIRAMATE 25 MG TABLET. PO SCH ×2 (09:13→19:58)
[2019-06-05] MEDS: FLUTICASONE 50MCG/NASAL SPRAY 16GM BOTTLE. NS SCH (09:14)
[2019-06-05] MEDS: LORazepam 0.5 MG TABLET PO SCH (09:14)
[2019-06-05] MEDS: CETIRIZINE HCL 10 MG TABLET PO SCH (09:14)
[2019-06-05] MEDS: ASA/APAP/CAFFEINE 250/250/65MG TABLET. PO PRN (11:47)
--- NOTE | 2019-06-05 12:31 | TX PLAN ---
Interdisciplinary Tx Plan Admission Information May 29, 2019 at 22:15 Legal Status (on Admission): Voluntary DPOA/Guardian Name: NA Contact Phone Number: NA Other Contact Name: [facility] Other Contact Verified Code Status: Full Code Allergies: Coded Allergies: No Known Drug Allergies (Unverified , 05/29/19) Estimated Length of Stay: 10 Diagnoses Primary Diagnosis: Schizoaffective Disorder Mixed with Psychotic Features and Impulse Control Disorder Reasons for Admission: Agitated, Anxiety/Panic, Hallucinations, Suspicious/paranoid, Isolating Problem in Patient's Words: Per pt., "I hear voices" saying "I've done bad things." Problems Active Problems: Per intake, pt. hears voices that tell him to do bad things, paranoid toughts that cause distress, anxious, expressing desire to go to the hospital, anxious he will do something wrong, increasingly agitated, insomnia, if he doesn't get to the hospital he will feel suidical, declines to eat at times, and isolates. Inactive Problems: Pt. is medication compliant. Pt Strengths/Limitations Ability for [place]: Fair Cognitive Functioning/Ability: Fair Communication Skills/Ability: Good Financial Resources: Fair Insight/Judgement: Fair Intellectual Ability: Fair Physical Health: Poor Social Skills: Fair Stability in Family: Poor Verbal Skills: Good Discharge Criteria Discharge Criteria: Able meet basic life need, Able to meet health needs, OP monitor medical prob, Improved behavior, Improved mood/thought Preliminary Discharge Plan Preliminary DC Plan: Current Living Arrange. Special Precautions Fall Risk: Moderate Initial D/C Plan Pt. will return to [facility] once stable. Identified Discharge Needs: Pt. will need follow up with PCP. Currently Utilized Resources Currently Utilized Resources/P: PCP Dr. Dalton Telepsych but refused on 05/29/2019 Identified Problems/Hx/Goals Objectives/Short-Term Goals Short Term Goals: Control abnormal behavior, Dec. Anxiety/Panic, Dec. 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 Education: According to pt., he graduated from high school and went to "business college" for approximately "two months." Community Follow-up Follow up with PCP Community Provider/Family Inpu: Pt. is a self sign. Treatment Plan Explained Patient/Turntable Man had this treatment plan explained to him/her as indicated by the signature below and has been given the opportunity to ask questions and make suggestions: Date: Patient/Turntable Man Signature: Patient/Turntable Man Decline: No Team Members Signatures Team Members Psychiatrist Date Nursing Date /SW Date Activity Therapy Date Other Date Other Date REA,EVELIN Jun 05, 2019 12:31
[2019-06-05] MEDS: BUDESONIDE 0.5 MG/2 ML NEBU NEB SCH ×2 (12:35→20:00)
[2019-06-05 16:10] VITALS: BP 91/57
[2019-06-05] MEDS ORDERED: traZODone 50 MG TABLET. PO PRN (17:30)
[2019-06-05] MEDS: CYCLOBENZAPRINE 10 MG TABLET. PO SCH (19:57)
[2019-06-05] MEDS: MELATONIN 3 MG TABLET PO SCH (19:57)
[2019-06-05] MEDS: traZODone 50 MG TABLET. PO SCH (19:59)
[2019-06-05] MEDS: POLYVINYL ALCOHOL 1.4% OPHTH SOLUTION 15ML BOTTLE. OU PRN (20:02)
[2019-06-05] MEDS: SUMAtriptan SUCCINATE 50 MG TABLET PO PRN (20:03)
[2019-06-05] MEDS: MAG HYDROX/AL HYDROX/SIMETH 30 ML ORAL.SUSP PO PRN (20:43)
--- NOTE | 2019-06-05 20:54 | PDOC ---
Exam Note: Bennett Note: Please also refer to the separate dictated note~for this date of service dictated separately.~Patient seen individually. Discussed the patient with Nursing staff reviewed the chart.~Reviewed interim history and current functioning. Reviewed vital signs,~Labs/ Radiology~and current medications noted below. Continue current treatment with the changes noted in the dictated addendum note Assessment: Vital Signs/I&O: Vital Signs Date Time Temp Pulse Resp B/P (MAP) Pulse Ox O2 Delivery O2 Flow Rate FiO2 06/05/19 19:58 118 91/57 06/05/19 16:10 98.6 20 93 NonRebreather Mask 3.0 I & O 06/04/19 06/04/19 06/05/19 15:00 23:00 07:00 Intake Total 1480 ml 780 ml Balance 1480 ml 780 ml Labs: Laboratory Tests Test 06/05/19 05:46 White Blood Count 8.6 x10^3/uL (4.0-11.0) Red Blood Count 4.96 x10^6/uL (4.30-5.70) Hemoglobin 15.5 g/dL (13.0-17.5) Hematocrit 45.3 % (39.0-53.0) Mean Corpuscular Volume 91 fL (79-100) Mean Corpuscular Hemoglobin 31 pg (25-35) Mean Corpuscular Hemoglobin Concent 34 g/dL (31-37) Red Cell Distribution Width 13.9 % (11.5-14.5) Platelet Count 296 x10^3/uL (140-400) Neutrophils (%) (Auto) 82 % (31-73) H Lymphocytes (%) (Auto) 8 % (24-48) L Monocytes (%) (Auto) 9 % (0-9) Eosinophils (%) (Auto) 2 % (0-3) Basophils (%) (Auto) 0 % (0-3) Neutrophils # (Auto) 7.0 x10^3uL (1.8-7.7) Lymphocytes # (Auto) 0.7 x10^3/uL (1.0-4.8) L Monocytes # (Auto) 0.7 x10^3/uL (0.0-1.1) Eosinophils # (Auto) 0.1 x10^3/uL (0.0-0.7) Basophils # (Auto) 0.0 x10^3/uL (0.0-0.2) Sodium Level 140 mmol/L (136-145) Potassium Level 3.5 mmol/L (3.5-5.1) Chloride Level 101 mmol/L (98-107) Carbon Dioxide Level 29 mmol/L (21-32) Anion Gap 10 (6-14) Blood Urea Nitrogen 16 mg/dL (8-26) Creatinine 1.1 mg/dL (0.7-1.3) Estimated GFR (Cockcroft-Gault) 67.4 BUN/Creatinine Ratio 15 (6-20) Glucose Level 144 mg/dL (70-99) H Calcium Level 8.8 mg/dL (8.5-10.1) Magnesium Level 1.8 mg/dL (1.8-2.4) Total Bilirubin 0.5 mg/dL (0.2-1.0) Aspartate Amino Transferase (AST) 12 U/L (15-37) L Alanine Aminotransferase (ALT) 19 U/L (16-63) Alkaline Phosphatase 65 U/L (46-116) Total Protein 6.5 g/dL (6.4-8.2) Albumin 3.6 g/dL (3.4-5.0) Albumin/Globulin Ratio 1.2 (1.0-1.7) Current Medications: Meds: Current Medications Medications (Trade) Dose Ordered Sig/Chris Route PRN Reason Start Time Stop Time Status Last Admin Dose Admin Ondansetron HCl (Zofran Odt) 4 mg PRN Q6HRS PRN PO NAUSEA/VOMITING 06/05/19 00:15 06/05/19 11:47 Loperamide HCl (Imodium) 2 mg PRN Q15MIN PRN PO DIARRHEA 06/05/19 02:45 06/05/19 11:47 Trazodone HCl (Desyrel) 50 mg QHS PO 06/05/19 21:00 06/05/19 19:59 I have reviewed the current psychotropics carefully including drug interactions. Risk benefit ratio favors no change other than as noted in my dictated progress note. Diagnosis: Problems: (1) Anxiety disorder (2) Alcoholic psychosis (3) Schizoaffective disorder, chronic condition with acute exacerbation (4) Obsessive compulsive disorder AUGUSTIN QUINTERO MD Jun 05, 2019 20:54
--- NOTE | 2019-06-05 22:35 | PN ---
DATE: PSYCHIATRIC PROGRESS NOTE This late entry 06/04/2019 covers elements not covered in my initial note. SUBJECTIVE: I met with the patient evening of 06/04/2019 in his room. The patient is overall doing better. We will be checking labs in the morning. He is somewhat constipated and we will address this. Complains of headaches, received Imitrex. REVIEW OF SYSTEMS: Ambulation impaired, in wheelchair. No CV, , pulmonary, eye system symptoms on review. MENTAL STATUS EXAM: Reasonably oriented. Speech is coherent, abstraction fair, computation impaired, language function intact, attention span short. Mood and affect somewhat withdrawn. No active hallucinations despite reduction of Haldol. MAN Keisha QUINTERO MD DR: MADI/junior JOB#: [id number] / [id number]
[2019-06-06] MEDS: IPRATRPIUM/ALBUTEROL 0.5/2.5MG 3 ML NEBU. NEB SCH ×3 (05:20→20:13)
[2019-06-06 05:45] VITALS: BP 108/67
[2019-06-06] MEDS: PANTOPRAZOLE 40 MG TABLET. PO SCH (07:30)
[2019-06-06] MEDS: TOPIRAMATE 25 MG TABLET. PO SCH ×2 (08:11→19:46)
[2019-06-06] MEDS: CETIRIZINE HCL 10 MG TABLET PO SCH (08:11)
[2019-06-06] MEDS: QUEtiapine 50 MG TABLET. PO SCH ×2 (08:12→19:44)
[2019-06-06] MEDS: FUROSEMIDE 20 MG TABLET PO SCH (08:12)
[2019-06-06] MEDS: LORazepam 0.5 MG TABLET PO SCH (08:12)
[2019-06-06] MEDS: METOPROLOL TART IMMED RELEASE 25 MG TABLET PO SCH ×2 (08:12→19:46)
[2019-06-06] MEDS: MULTIVITAMIN with MINERAL TABLET. PO SCH (08:12)
[2019-06-06] MEDS: BENZTROPINE MESYLATE 0.5 MG TABLET PO SCH ×2 (08:13→19:55)
[2019-06-06] MEDS: FLUTICASONE 50MCG/NASAL SPRAY 16GM BOTTLE. NS SCH (08:13)
[2019-06-06] MEDS: DOCUSATE SODIUM 100 MG CAPSULE PO SCH ×2 (08:13→19:45)
[2019-06-06] MEDS: POLYVINYL ALCOHOL 1.4% OPHTH SOLUTION 15ML BOTTLE. OU PRN ×2 (08:18→19:44)
[2019-06-06] MEDS: ONDANSETRON ODT 4 MG TAB.RAPDIS PO PRN (09:15)
[2019-06-06] MEDS: BUDESONIDE 0.5 MG/2 ML NEBU NEB SCH ×2 (09:39→20:13)
[2019-06-06 15:48] VITALS: BP 107/71
[2019-06-06] MEDS: LOPERAMIDE 2 MG CAPSULE PO PRN (18:20)
[2019-06-06] MEDS: MELATONIN 3 MG TABLET PO SCH (19:44)
[2019-06-06] MEDS: CYCLOBENZAPRINE 10 MG TABLET. PO SCH (19:44)
[2019-06-06] MEDS: SUMAtriptan SUCCINATE 50 MG TABLET PO PRN (19:45)
[2019-06-06] MEDS: traZODone 50 MG TABLET. PO SCH (19:45)
--- NOTE | 2019-06-06 20:37 | PDOC ---
Exam Note: Bennett Note: Please also refer to the separate dictated note~for this date of service dictated separately.~Patient seen individually. Discussed the patient with Nursing staff reviewed the chart.~Reviewed interim history and current functioning. Reviewed vital signs,~Labs/ Radiology~and current medications noted below. Continue current treatment with the changes noted in the dictated addendum note Assessment: Vital Signs/I&O: Vital Signs Date Time Temp Pulse Resp B/P (MAP) Pulse Ox O2 Delivery O2 Flow Rate FiO2 06/06/19 20:29 95 Room Air 06/06/19 19:46 76 107/71 06/06/19 15:48 97.6 16 06/05/19 16:10 3.0 I & O 06/05/19 06/05/19 06/06/19 15:00 23:00 07:00 Intake Total 240 ml 540 ml Balance 240 ml 540 ml Current Medications: Meds: Current Medications Medications (Trade) Dose Ordered Sig/Chris Route PRN Reason Start Time Stop Time Status Last Admin Dose Admin Trazodone HCl (Desyrel) 50 mg QHS PO 06/05/19 21:00 06/06/19 19:45 I have reviewed the current psychotropics carefully including drug interactions. Risk benefit ratio favors no change other than as noted in my dictated progress note. Diagnosis: Problems: (1) Anxiety disorder (2) Alcoholic psychosis (3) Schizoaffective disorder, chronic condition with acute exacerbation (4) Obsessive compulsive disorder AUGUSTIN QUINTERO MD Jun 06, 2019 20:37
--- NOTE | 2019-06-06 23:43 | PN ---
DATE: 06/05/2019 PSYCHIATRIC PROGRESS NOTE This late entry 06/05/2019 covers elements not covered in my initial note. SUBJECTIVE: I met with the patient in the evening at length in his room. Per ALICJA Edwards, the patient slept 2-3/4 hours previous night. He has had somewhat persistent diarrhea, nausea, vomiting, received Imodium and Zofran previous night. He was found lying on the bathroom floor earlier in the day on 06/05 covered with bowel movements, said he hit his head. We will defer to Dr. Jordan. Vital signs unremarkable. REVIEW OF SYSTEMS: Positive for tiredness, impaired ambulation. No CV, , PULMONARY, EYE system symptoms on review, does complain of abdominal discomfort. MENTAL STATUS EXAM: Reasonably oriented. Speech is coherent, has some latency. Abstraction fair, computation impaired, language function intact, attention span short. Mood and affect withdrawn. He denies active hallucinations despite tapering the Haldol. LABORATORY DATA: Reviewed. IMPRESSION: Schizoaffective disorder, bipolar type, mixed with psychotic features, in partial remission, rest as above. PLAN: Continue current psychotropics. He just slept 2-3/4 hours previous night. We will add trazodone 50 mg at bedtime, may repeat x 1 for insomnia, rest unchanged. MAN Keisha QUINTERO MD DR: MADI/junior JOB#: [id number] / [id number]
[2019-06-07] MEDS: IPRATRPIUM/ALBUTEROL 0.5/2.5MG 3 ML NEBU. NEB SCH ×3 (04:52→20:16)
[2019-06-07] MEDS: BUDESONIDE 0.5 MG/2 ML NEBU NEB SCH ×2 (04:52→20:00)
[2019-06-07 06:04] VITALS: BP 100/55
[2019-06-07] MEDS: POLYVINYL ALCOHOL 1.4% OPHTH SOLUTION 15ML BOTTLE. OU PRN ×2 (08:34→19:59)
[2019-06-07] MEDS: DOCUSATE SODIUM 100 MG CAPSULE PO SCH ×2 (08:35→20:00)
[2019-06-07] MEDS: MULTIVITAMIN with MINERAL TABLET. PO SCH (08:35)
[2019-06-07] MEDS: FLUTICASONE 50MCG/NASAL SPRAY 16GM BOTTLE. NS SCH (08:35)
[2019-06-07] MEDS: CHOLECALCIFEROL (VITAMIN D3) 50,000 UNIT CAPSULE PO SCH (08:36)
[2019-06-07] MEDS: ONDANSETRON ODT 4 MG TAB.RAPDIS PO PRN ×2 (08:36→20:05)
[2019-06-07] MEDS: QUEtiapine 50 MG TABLET. PO SCH ×2 (08:36→20:00)
[2019-06-07] MEDS: BENZTROPINE MESYLATE 0.5 MG TABLET PO SCH ×2 (08:36→19:59)
[2019-06-07] MEDS: LORazepam 0.5 MG TABLET PO SCH (08:37)
[2019-06-07] MEDS: CETIRIZINE HCL 10 MG TABLET PO SCH (08:37)
[2019-06-07] MEDS: PANTOPRAZOLE 40 MG TABLET. PO SCH (08:37)
[2019-06-07] MEDS: FUROSEMIDE 20 MG TABLET PO SCH (08:37)
[2019-06-07] MEDS: TOPIRAMATE 25 MG TABLET. PO SCH ×2 (08:37→19:59)
[2019-06-07] MEDS: METOPROLOL TART IMMED RELEASE 25 MG TABLET PO SCH ×2 (08:38→20:05)
[2019-06-07] MEDS: IBUPROFEN 800 MG TABLET. PO PRN (13:04)
[2019-06-07 15:47] VITALS: BP 95/64
[2019-06-07] MEDS: SUMAtriptan SUCCINATE 50 MG TABLET PO PRN (19:59)
[2019-06-07] MEDS: MELATONIN 3 MG TABLET PO SCH (20:00)
[2019-06-07] MEDS: traZODone 50 MG TABLET. PO SCH (20:00)
[2019-06-07] MEDS: CYCLOBENZAPRINE 10 MG TABLET. PO SCH (20:04)
--- NOTE | 2019-06-07 23:44 | PN ---
DATE: 06/07/2019 SUBJECTIVE: The patient was seen today, met with the staff, chart reviewed and also covering for Dr. Smiley. Staff reports no evidence of any psychotic symptoms, tends to be demanding at times. The patient admits to having problems with alcohol in the past. Apparently, he was drinking fairly heavy. The last drink was about 4 months ago and also admits he had at least 2 DUIs in the past. OBSERVATION: VITAL SIGNS: Temperature 97.5, blood pressure 100/55, pulse 64, respirations 20, O2 sat 95%. Slept about 7 hours last night. The patient's appetite is fair. MEDICATIONS: The patient's current medications include trazodone 50 mg at night, Luvox 75 mg daily, trazodone 50 mg at night p.r.n. Cogentin 0.5 mg b.i.d., Topamax 50 mg b.i.d., Seroquel 150 mg twice a day, and melatonin 9 mg at night. LABORATORY DATA: The patient's lab reviewed. ASSESSMENT: Schizoaffective disorder, bipolar type, OCD behaviors. PLAN: To continue with the treatment. LENGTH OF STAY: 5 days. MARISA KATZ MD DR: REAL/junior JOB#: [id number] / [id number]
--- NOTE | 2019-06-08 04:22 | PN ---
DATE: 06/06/2019 PSYCHIATRIC PROGRESS NOTE This late entry, 06/06/2019, covers elements not covered in my initial note. SUBJECTIVE: I met with the patient in the evening of 06/06/2019. Per ALICJA Paula, the patient slept 7 hours previous night. He has had no diarrhea, but at the time I met with him in the evening, he had complaint of 1 episode of diarrhea. He has been somewhat obsessed about his glasses per nursing report. Nevertheless, no hallucinations seemed to have resurfaced despite reduction in his Haldol, which was ultimately stopped; initially, he was on 5 mg t.i.d. REVIEW OF SYSTEMS: Positive for the 1 diarrhea. No CV, , pulmonary, eye system symptoms on review. Gait unsteady, in wheelchair. MENTAL STATUS EXAMINATION: Reasonably oriented. Speech is coherent, has some latency. Abstraction is fair. Computation is impaired. Language function is intact. Mood and affect are showing some improvement. LABORATORY DATA: Reviewed. IMPRESSION: Unchanged from initial note. PLAN: No change from initial note. MAN Keisha QUINTERO MD DR: MADI/junior JOB#: [id number] / [id number]
[2019-06-08] MEDS: IPRATRPIUM/ALBUTEROL 0.5/2.5MG 3 ML NEBU. NEB SCH ×3 (05:43→19:55)
[2019-06-08 06:06] VITALS: BP 106/65
[2019-06-08] MEDS: METOPROLOL TART IMMED RELEASE 25 MG TABLET PO SCH ×2 (08:05→20:13)
[2019-06-08] MEDS: MULTIVITAMIN with MINERAL TABLET. PO SCH (08:05)
[2019-06-08] MEDS: FUROSEMIDE 20 MG TABLET PO SCH (08:06)
[2019-06-08] MEDS: LOPERAMIDE 2 MG CAPSULE PO PRN ×4 (08:06→20:13)
[2019-06-08] MEDS: QUEtiapine 50 MG TABLET. PO SCH ×2 (08:06→20:13)
[2019-06-08] MEDS: PANTOPRAZOLE 40 MG TABLET. PO SCH (08:07)
[2019-06-08] MEDS: TOPIRAMATE 25 MG TABLET. PO SCH ×2 (08:07→20:13)
[2019-06-08] MEDS: DOCUSATE SODIUM 100 MG CAPSULE PO SCH ×3 (08:07→20:21)
[2019-06-08] MEDS: ONDANSETRON ODT 4 MG TAB.RAPDIS PO PRN ×2 (08:07→20:13)
[2019-06-08] MEDS: CETIRIZINE HCL 10 MG TABLET PO SCH (08:07)
[2019-06-08] MEDS: LORazepam 0.5 MG TABLET PO SCH (08:07)
[2019-06-08] MEDS: BENZTROPINE MESYLATE 0.5 MG TABLET PO SCH ×2 (08:07→20:12)
[2019-06-08] MEDS: FLUTICASONE 50MCG/NASAL SPRAY 16GM BOTTLE. NS SCH (08:08)
[2019-06-08] MEDS: BUDESONIDE 0.5 MG/2 ML NEBU NEB SCH ×2 (09:58→19:55)
[2019-06-08] MEDS: IBUPROFEN 800 MG TABLET. PO PRN (12:57)
[2019-06-08 16:21] VITALS: BP 111/72
[2019-06-08] MEDS: traZODone 50 MG TABLET. PO SCH (20:12)
[2019-06-08] MEDS: CYCLOBENZAPRINE 10 MG TABLET. PO SCH (20:12)
[2019-06-08] MEDS: metroNIDAZOLE 500 MG TABLET PO SCH (20:12)
[2019-06-08] MEDS: MELATONIN 3 MG TABLET PO SCH (20:14)
[2019-06-08] MEDS: POLYVINYL ALCOHOL 1.4% OPHTH SOLUTION 15ML BOTTLE. OU PRN (20:14)
[2019-06-08] MEDS: LACTOBACILLUS RHAMNOSUS GG 1 CAPSULE. PO SCH (20:14)
[2019-06-08] MEDS: SUMAtriptan SUCCINATE 50 MG TABLET PO PRN (20:14)
[2019-06-09] MEDS: metroNIDAZOLE 500 MG TABLET PO SCH ×3 (04:00→20:23)
[2019-06-09] MEDS: BUDESONIDE 0.5 MG/2 ML NEBU NEB SCH ×2 (05:15→19:12)
[2019-06-09] MEDS: IPRATRPIUM/ALBUTEROL 0.5/2.5MG 3 ML NEBU. NEB SCH ×3 (05:16→19:12)
--- NOTE | 2019-06-09 06:21 | PN ---
DATE: 06/08/2019 SUBJECTIVE: The patient was seen today, met with the staff, chart reviewed. The patient is currently not exhibiting any psychotic symptoms. The patient has been complaining of having diarrhea for the past 3 days. The patient also admits to having problems with chronic migraine headaches. The patient also admitted to having problems with alcohol including having two DUIs. OBSERVATION: VITAL SIGNS: Temperature 97.3, blood pressure 106/65, pulse 71, respirations 20, O2 sat 95%. Slept about 7 hours last night. LABORATORY DATA: The patient's lab is reviewed. MEDICATIONS: The patient's current medications include trazodone 50 mg at night, Luvox 75 mg daily, trazodone 50 mg at night p.r.n., Cogentin 0.5 mg b.i.d., Topamax 50 mg b.i.d., Seroquel 150 mg twice a day and melatonin 9 mg at night. The patient is not having any major side effects. ASSESSMENT: Schizoaffective disorder, bipolar type; obsessive compulsive disorder. MARISA KATZ MD DR: REAL/junior JOB#: [id number] / [id number]
[2019-06-09 06:57] LABS: HEMATOCRIT 39.1 % (39.0-53.0); HEMOGLOBIN 13.2 g/dL (13.0-17.5); RED BLOOD COUNT 4.26 x10^6/uL (4.30-5.70); RED CELL DISTRIBUTION WIDTH 13.9 % (11.5-14.5)
[2019-06-09 07:09] LABS: ALBUMIN 2.9 g/dL (3.4-5.0); ALBUMIN/GLOBULIN RATIO 1.2 (1.0-1.7); CALCIUM 8.2 mg/dL (8.5-10.1); CREATININE 1.3 mg/dL (0.7-1.3); GFR 55.6; POTASSIUM 3.7 mmol/L (3.5-5.1); TOTAL BILIRUBIN 0.3 mg/dL (0.2-1.0); TOTAL PROTEIN 5.4 g/dL (6.4-8.2)
[2019-06-09 07:21] VITALS: BP 92/53
[2019-06-09] MEDS: ONDANSETRON ODT 4 MG TAB.RAPDIS PO PRN (08:13)
[2019-06-09] MEDS: LORazepam 0.5 MG TABLET PO SCH (08:13)
[2019-06-09] MEDS: QUEtiapine 50 MG TABLET. PO SCH ×2 (08:13→20:23)
[2019-06-09] MEDS: FUROSEMIDE 20 MG TABLET PO SCH (08:13)
[2019-06-09] MEDS: CETIRIZINE HCL 10 MG TABLET PO SCH (08:13)
[2019-06-09] MEDS: BENZTROPINE MESYLATE 0.5 MG TABLET PO SCH ×2 (08:14→20:22)
[2019-06-09] MEDS: LACTOBACILLUS RHAMNOSUS GG 1 CAPSULE. PO SCH ×2 (08:14→20:23)
[2019-06-09] MEDS: PANTOPRAZOLE 40 MG TABLET. PO SCH (08:14)
[2019-06-09] MEDS: TOPIRAMATE 25 MG TABLET. PO SCH ×2 (08:14→20:23)
[2019-06-09] MEDS: MULTIVITAMIN with MINERAL TABLET. PO SCH (08:14)
[2019-06-09] MEDS: METOPROLOL TART IMMED RELEASE 25 MG TABLET PO SCH ×2 (08:15→20:23)
[2019-06-09] MEDS: FLUTICASONE 50MCG/NASAL SPRAY 16GM BOTTLE. NS SCH (08:15)
[2019-06-09] MEDS: DOCUSATE SODIUM 100 MG CAPSULE PO SCH ×2 (08:15→21:00)
[2019-06-09 15:59] LABS: INFLUENZA A PATIENT NEGATIVE (NEGATIVE); INFLUENZA B PATIENT NEGATIVE (NEGATIVE)
[2019-06-09 16:26] VITALS: BP 113/75
[2019-06-09] MEDS: POLYVINYL ALCOHOL 1.4% OPHTH SOLUTION 15ML BOTTLE. OU PRN (20:21)
[2019-06-09] MEDS: MELATONIN 3 MG TABLET PO SCH (20:22)
[2019-06-09] MEDS: traZODone 50 MG TABLET. PO SCH (20:22)
[2019-06-09] MEDS: CYCLOBENZAPRINE 10 MG TABLET. PO SCH (20:23)
[2019-06-09] MEDS: IBUPROFEN 800 MG TABLET. PO PRN (21:31)
[2019-06-10] MEDS: metroNIDAZOLE 500 MG TABLET PO SCH ×3 (04:00→20:23)
[2019-06-10] MEDS: IPRATRPIUM/ALBUTEROL 0.5/2.5MG 3 ML NEBU. NEB SCH ×3 (05:38→20:06)
[2019-06-10 06:49] VITALS: BP 136/81
[2019-06-10 06:53] VITALS: BP 95/67
[2019-06-10] MEDS: BUDESONIDE 0.5 MG/2 ML NEBU NEB SCH ×2 (07:50→20:05)
[2019-06-10] MEDS: QUEtiapine 50 MG TABLET. PO SCH ×2 (08:11→20:22)
[2019-06-10] MEDS: DOCUSATE SODIUM 100 MG CAPSULE PO SCH ×2 (08:11→20:23)
[2019-06-10] MEDS: MULTIVITAMIN with MINERAL TABLET. PO SCH (08:11)
[2019-06-10] MEDS: LACTOBACILLUS RHAMNOSUS GG 1 CAPSULE. PO SCH ×2 (08:11→20:23)
[2019-06-10] MEDS: BENZTROPINE MESYLATE 0.5 MG TABLET PO SCH ×2 (08:12→20:23)
[2019-06-10] MEDS: PANTOPRAZOLE 40 MG TABLET. PO SCH (08:12)
[2019-06-10] MEDS: TOPIRAMATE 25 MG TABLET. PO SCH ×2 (08:12→20:23)
[2019-06-10] MEDS: FUROSEMIDE 20 MG TABLET PO SCH (08:12)
[2019-06-10] MEDS: CETIRIZINE HCL 10 MG TABLET PO SCH (08:12)
[2019-06-10] MEDS: METOPROLOL TART IMMED RELEASE 25 MG TABLET PO SCH ×2 (08:13→20:24)
[2019-06-10] MEDS: LORazepam 0.5 MG TABLET PO SCH (08:16)
[2019-06-10] MEDS: FLUTICASONE 50MCG/NASAL SPRAY 16GM BOTTLE. NS SCH (08:20)
[2019-06-10] MEDS: ONDANSETRON ODT 4 MG TAB.RAPDIS PO PRN (08:21)
--- NOTE | 2019-06-10 10:18 | PN ---
DATE: 06/09/2019 SUBJECTIVE: The patient was seen today, met with the staff, chart reviewed. The patient continues to complain of having loose stools and also complained of vomiting couple of times yesterday. The patient also complaining of headaches and not able to eat. OBSERVATION: VITAL SIGNS: Temperature 97.0, blood pressure 92/53, pulse 67, respirations 16, O2 sat 95%. Slept about 7 hours last night. The patient's appetite decreased, but staff reports he has been eating fairly good and also he has been having multiple physical complaints. MEDICATIONS: The patient's current medications include trazodone 50 mg at night, Luvox 75 mg daily, trazodone 50 mg at night p.r.n., Cogentin 0.5 mg b.i.d., Topamax 50 mg b.i.d., Seroquel 150 mg twice a day. The patient is also on melatonin 9 mg at night. The patient does not have any side effects to the medications. ASSESSMENT: 1. Schizoaffective disorder, bipolar type. 2. Obsessive compulsive disorder. PLAN: To continue with the treatment. LENGTH OF STAY: 5-7 days. MARISA KATZ MD DR: REAL/junior JOB#: [id number] / [id number]
[2019-06-10] MEDS: IBUPROFEN 800 MG TABLET. PO PRN (14:16)
[2019-06-10 15:57] VITALS: BP 107/59
[2019-06-10] MEDS: SUMAtriptan SUCCINATE 50 MG TABLET PO PRN (20:22)
[2019-06-10] MEDS: MELATONIN 3 MG TABLET PO SCH (20:22)
[2019-06-10] MEDS: traZODone 50 MG TABLET. PO SCH (20:23)
[2019-06-10] MEDS: CYCLOBENZAPRINE 10 MG TABLET. PO SCH (20:23)
[2019-06-10] MEDS: POLYVINYL ALCOHOL 1.4% OPHTH SOLUTION 15ML BOTTLE. OU PRN (20:29)
--- NOTE | 2019-06-10 23:27 | PN ---
DATE: 06/10/2019 SUBJECTIVE: The patient was seen today, met with the staff, chart reviewed. The patient continues to be irritable, west, isolating himself, not wanting anyone in his room. The patient is still complaining of diarrhea, but is not able to tell the staff when he had the diarrhea, so that staff can make a decision whether he would need any more testing for C. diff. The patient is currently on Flagyl. OBSERVATION: VITAL SIGNS: Temperature 98.3, blood pressure 107/59, pulse 84, respirations 16, O2 sat 98%. Slept about 7 hours last night. The patient is not having any other physical complaints. MEDICATIONS: The patient's current medications include Luvox 75 mg at night, trazodone 50 mg at night p.r.n., Cogentin 0.5 mg b.i.d., Topamax 50 mg b.i.d., Seroquel 150 mg b.i.d., and melatonin 9 mg at night. The patient denies of any side effects. ASSESSMENT: 1. Schizoaffective disorder, bipolar type. 2. Obsessive compulsive disorder. PLAN: To continue with the treatment. LENGTH OF STAY: 5-7 days. MARISA KATZ MD DR: REAL/junior JOB#: [id number] / [id number]
[2019-06-11] MEDS: metroNIDAZOLE 500 MG TABLET PO SCH ×3 (05:45→20:13)
[2019-06-11] MEDS: IPRATRPIUM/ALBUTEROL 0.5/2.5MG 3 ML NEBU. NEB SCH ×3 (06:29→20:07)
[2019-06-11 06:30] VITALS: BP 87/54
[2019-06-11] MEDS: POLYVINYL ALCOHOL 1.4% OPHTH SOLUTION 15ML BOTTLE. OU PRN ×2 (08:05→20:18)
[2019-06-11] MEDS: CETIRIZINE HCL 10 MG TABLET PO SCH (08:05)
[2019-06-11] MEDS: PANTOPRAZOLE 40 MG TABLET. PO SCH (08:05)
[2019-06-11] MEDS: FLUTICASONE 50MCG/NASAL SPRAY 16GM BOTTLE. NS SCH (08:05)
[2019-06-11] MEDS: FUROSEMIDE 20 MG TABLET PO SCH (08:05)
[2019-06-11] MEDS: BENZTROPINE MESYLATE 0.5 MG TABLET PO SCH ×2 (08:05→20:14)
[2019-06-11] MEDS: LACTOBACILLUS RHAMNOSUS GG 1 CAPSULE. PO SCH ×2 (08:06→20:14)
[2019-06-11] MEDS: TOPIRAMATE 25 MG TABLET. PO SCH ×2 (08:06→20:14)
[2019-06-11] MEDS: QUEtiapine 50 MG TABLET. PO SCH ×2 (08:06→20:14)
[2019-06-11] MEDS: MULTIVITAMIN with MINERAL TABLET. PO SCH (08:06)
[2019-06-11] MEDS: DOCUSATE SODIUM 100 MG CAPSULE PO SCH ×2 (08:07→20:14)
[2019-06-11] MEDS: METOPROLOL TART IMMED RELEASE 25 MG TABLET PO SCH (08:07)
[2019-06-11] MEDS: LORazepam 0.5 MG TABLET PO SCH (08:10)
[2019-06-11] MEDS: BUDESONIDE 0.5 MG/2 ML NEBU NEB SCH ×2 (11:15→20:07)
[2019-06-11 15:36] VITALS: BP 128/78
[2019-06-11] MEDS: SUMAtriptan SUCCINATE 50 MG TABLET PO PRN (20:13)
[2019-06-11] MEDS: MELATONIN 3 MG TABLET PO SCH (20:14)
[2019-06-11] MEDS: CYCLOBENZAPRINE 10 MG TABLET. PO SCH (20:14)
[2019-06-11] MEDS: traZODone 50 MG TABLET. PO SCH (20:14)
--- NOTE | 2019-06-12 03:43 | PN ---
DATE: 06/11/2019 SUBJECTIVE: The patient was seen today, met with the staff, chart reviewed. The patient's behavior remains the same, tends to isolate himself, irritable, west and sometimes not wanting anyone in his room. The patient recently has complained of diarrhea. OBSERVATION: VITAL SIGNS: Temperature 98.3, blood pressure 107/59, pulse 84, respirations 16, O2 sat 98%. GENERAL: The patient is sleeping fairly well. The patient is not having any side effects to medications. LABORATORY DATA: The patient's lab reviewed. CURRENT MEDICATIONS: Include Luvox 75 mg at night, trazodone 50 mg at night, Cogentin 0.5 mg b.i.d., Topamax 5 mg b.i.d., Seroquel 150 mg b.i.d., melatonin 9 mg at night. ASSESSMENT: 1. Schizoaffective disorder, bipolar type. 2. Obsessive compulsive disorder. PLAN: To continue with the treatment. LENGTH OF STAY: 5-7 days. MARISA KATZ MD DR: REAL/junior JOB#: [id number] / [id number]
[2019-06-12] MEDS: metroNIDAZOLE 500 MG TABLET PO SCH ×3 (04:00→19:38)
[2019-06-12] MEDS: BUDESONIDE 0.5 MG/2 ML NEBU NEB SCH ×2 (05:12→20:20)
[2019-06-12] MEDS: IPRATRPIUM/ALBUTEROL 0.5/2.5MG 3 ML NEBU. NEB SCH ×3 (05:13→20:20)
[2019-06-12 06:00] VITALS: BP 104/69
[2019-06-12] MEDS: DOCUSATE SODIUM 100 MG CAPSULE PO SCH ×2 (08:31→19:38)
[2019-06-12] MEDS: POLYVINYL ALCOHOL 1.4% OPHTH SOLUTION 15ML BOTTLE. OU PRN ×2 (08:31→19:37)
[2019-06-12] MEDS: FLUTICASONE 50MCG/NASAL SPRAY 16GM BOTTLE. NS SCH (08:31)
[2019-06-12] MEDS: LACTOBACILLUS RHAMNOSUS GG 1 CAPSULE. PO SCH ×2 (08:32→19:38)
[2019-06-12] MEDS: CETIRIZINE HCL 10 MG TABLET PO SCH (08:32)
[2019-06-12] MEDS: MULTIVITAMIN with MINERAL TABLET. PO SCH (08:32)
[2019-06-12] MEDS: LORazepam 0.5 MG TABLET PO SCH (08:32)
[2019-06-12] MEDS: BENZTROPINE MESYLATE 0.5 MG TABLET PO SCH ×2 (08:32→19:38)
[2019-06-12] MEDS: TOPIRAMATE 25 MG TABLET. PO SCH ×2 (08:32→19:39)
[2019-06-12] MEDS: QUEtiapine 50 MG TABLET. PO SCH ×2 (08:32→19:38)
[2019-06-12] MEDS: PANTOPRAZOLE 40 MG TABLET. PO SCH (08:32)
[2019-06-12] MEDS: FUROSEMIDE 20 MG TABLET PO SCH (08:32)
[2019-06-12 15:41] VITALS: BP 127/84
[2019-06-12] MEDS: CYCLOBENZAPRINE 10 MG TABLET. PO SCH (19:38)
[2019-06-12] MEDS: traZODone 50 MG TABLET. PO SCH (19:38)
[2019-06-12] MEDS: SUMAtriptan SUCCINATE 50 MG TABLET PO PRN (19:38)
[2019-06-12] MEDS: MELATONIN 3 MG TABLET PO SCH (19:38)
[2019-06-13] MEDS: metroNIDAZOLE 500 MG TABLET PO SCH (04:17)
--- NOTE | 2019-06-13 04:23 | PN ---
DATE: 06/12/2019 SUBJECTIVE: The patient was seen today, met with the staff, chart reviewed. The patient continues to complain of decreased sleep, feeling restless and also frequent diarrhea. The patient also tends to isolate herself. OBSERVATION: VITAL SIGNS: Temperature 98.0, blood pressure 104/69, pulse 75, respirations 20, O2 sat 94%. Slept about 6 hours last night. The patient is not having any side effects. LABORATORY DATA: The patient's lab reviewed. MEDICATIONS: The patient is currently on Luvox 75 mg at night, trazodone 50 mg at night, Cogentin 0.5 mg b.i.d., Topamax 50 mg b.i.d., and Seroquel 150 mg b.i.d., and melatonin 9 mg at night. ASSESSMENT: 1. Schizoaffective disorder, bipolar type. 2. Obsessive compulsive disorder. PLAN: To continue with the treatment. LENGTH OF STAY: 5-7 days. MARISA KATZ MD DR: REAL/junior JOB#: [id number] / [id number] ELZA
[2019-06-13] MEDS: IPRATRPIUM/ALBUTEROL 0.5/2.5MG 3 ML NEBU. NEB SCH ×3 (05:00→20:58)
[2019-06-13 06:05] VITALS: BP 91/58
[2019-06-13] MEDS: POLYVINYL ALCOHOL 1.4% OPHTH SOLUTION 15ML BOTTLE. OU PRN ×2 (08:04→19:54)
[2019-06-13] MEDS: FLUTICASONE 50MCG/NASAL SPRAY 16GM BOTTLE. NS SCH (08:04)
[2019-06-13] MEDS: CETIRIZINE HCL 10 MG TABLET PO SCH (08:05)
[2019-06-13] MEDS: TOPIRAMATE 25 MG TABLET. PO SCH ×2 (08:05→19:55)
[2019-06-13] MEDS: LORazepam 0.5 MG TABLET PO SCH (08:05)
[2019-06-13] MEDS: LACTOBACILLUS RHAMNOSUS GG 1 CAPSULE. PO SCH ×2 (08:05→19:55)
[2019-06-13] MEDS: PANTOPRAZOLE 40 MG TABLET. PO SCH (08:05)
[2019-06-13] MEDS: DOCUSATE SODIUM 100 MG CAPSULE PO SCH ×2 (08:05→19:55)
[2019-06-13] MEDS: QUEtiapine 50 MG TABLET. PO SCH ×2 (08:06→19:55)
[2019-06-13] MEDS: BENZTROPINE MESYLATE 0.5 MG TABLET PO SCH ×2 (08:06→19:55)
[2019-06-13] MEDS: MULTIVITAMIN with MINERAL TABLET. PO SCH (08:06)
[2019-06-13] MEDS: FUROSEMIDE 20 MG TABLET PO SCH (08:06)
[2019-06-13] MEDS: BUDESONIDE 0.5 MG/2 ML NEBU NEB SCH ×2 (13:52→20:58)
[2019-06-13 15:59] VITALS: BP 108/73
[2019-06-13] MEDS: CYCLOBENZAPRINE 10 MG TABLET. PO SCH (19:54)
[2019-06-13] MEDS: traZODone 50 MG TABLET. PO SCH (19:55)
[2019-06-13] MEDS: MELATONIN 3 MG TABLET PO SCH (19:55)
[2019-06-13] MEDS: SUMAtriptan SUCCINATE 50 MG TABLET PO PRN (19:55)
[2019-06-13] MEDS ORDERED: POLYETHYLENE GLYCOL 3350 17 GM PACKET. PO PRN (23:15)
--- NOTE | 2019-06-14 04:03 | PN ---
DATE: 06/13/2019 SUBJECTIVE: The patient was seen today, met with the staff, chart reviewed. The patient has not presented with any major behavior problems; continues to complain of decreased sleep, restlessness. The patient is also irritable and west at times, tends to isolate himself. OBSERVATION: VITAL SIGNS: Temperature 98.1, blood pressure 91/58, pulse 73, respirations 18, O2 sat 97%. GENERAL: Slept about 8 hours last night. CURRENT MEDICATIONS: Include Luvox 75 mg at night, trazodone 50 mg at night, Cogentin 0.5 mg b.i.d., Topamax 50 mg b.i.d., Seroquel 150 mg b.i.d. and melatonin 9 mg at night. The patient is not having any side effects to medications. LABORATORY DATA: The patient's lab reviewed. The patient did not have any falls. ASSESSMENT: 1. Schizoaffective disorder, bipolar type. 2. Obsessive compulsive disorder. PLAN: To continue with the treatment. LENGTH OF STAY: 5 to [address] MARISA KATZ MD DR: REAL/junior JOB#: [id number] / [id number] ELZA
[2019-06-14] MEDS: IPRATRPIUM/ALBUTEROL 0.5/2.5MG 3 ML NEBU. NEB SCH ×3 (05:47→23:07)
[2019-06-14 06:09] VITALS: BP 93/60
[2019-06-14] MEDS: BUDESONIDE 0.5 MG/2 ML NEBU NEB SCH ×2 (07:39→23:07)
[2019-06-14] MEDS: LACTOBACILLUS RHAMNOSUS GG 1 CAPSULE. PO SCH ×2 (08:26→20:04)
[2019-06-14] MEDS: CETIRIZINE HCL 10 MG TABLET PO SCH (08:26)
[2019-06-14] MEDS: CHOLECALCIFEROL (VITAMIN D3) 50,000 UNIT CAPSULE PO SCH (08:26)
[2019-06-14] MEDS: TOPIRAMATE 25 MG TABLET. PO SCH ×2 (08:26→20:04)
[2019-06-14] MEDS: QUEtiapine 50 MG TABLET. PO SCH ×2 (08:26→20:04)
[2019-06-14] MEDS: LORazepam 0.5 MG TABLET PO SCH (08:27)
[2019-06-14] MEDS: FLUTICASONE 50MCG/NASAL SPRAY 16GM BOTTLE. NS SCH (08:27)
[2019-06-14] MEDS: FUROSEMIDE 20 MG TABLET PO SCH (08:27)
[2019-06-14] MEDS: MULTIVITAMIN with MINERAL TABLET. PO SCH (08:27)
[2019-06-14] MEDS: DOCUSATE SODIUM 100 MG CAPSULE PO SCH ×2 (08:27→20:04)
[2019-06-14] MEDS: BENZTROPINE MESYLATE 0.5 MG TABLET PO SCH ×2 (08:27→20:04)
[2019-06-14] MEDS: PANTOPRAZOLE 40 MG TABLET. PO SCH (08:27)
[2019-06-14] MEDS: POLYVINYL ALCOHOL 1.4% OPHTH SOLUTION 15ML BOTTLE. OU PRN ×2 (08:28→20:05)
[2019-06-14 16:53] VITALS: BP 120/76
[2019-06-14] MEDS: traZODone 50 MG TABLET. PO SCH (20:04)
[2019-06-14] MEDS: CYCLOBENZAPRINE 10 MG TABLET. PO SCH (20:04)
[2019-06-14] MEDS: SUMAtriptan SUCCINATE 50 MG TABLET PO PRN (20:05)
[2019-06-14] MEDS: MELATONIN 3 MG TABLET PO SCH (20:05)
--- NOTE | 2019-06-14 23:41 | PN ---
DATE: 06/14/2019 SUBJECTIVE: The patient was seen today, met with the staff, chart reviewed. The patient continues to have difficulty with high level of anxiety, not sleeping well, also irritable and west at times and tendency to isolate himself. OBSERVATION: VITAL SIGNS: Temperature 94.9, blood pressure 92/60, pulse 75, respirations 18, O2 sat 94%. Slept about 7 hours last night. The patient denies of any major physical complaints. The patient's appetite is fair. MEDICATIONS: The patient's current medications include Luvox 75 mg at night, trazodone 50 mg at night, Cogentin 0.5 mg b.i.d., Topamax 50 mg b.i.d., Seroquel 150 mg b.i.d. and melatonin 9 mg at night. The patient is not having any side effects to the medications. ASSESSMENT: 1. Schizoaffective disorder, bipolar type. 2. Obsessive compulsive disorder. PLAN: To continue with the treatment. LENGTH OF STAY: 5 to [address] days[address] MARISA KATZ MD DR: REAL/junior JOB#: [id number] / [id number] ELZA
[2019-06-15 05:56] VITALS: BP 111/72
[2019-06-15] MEDS: IPRATRPIUM/ALBUTEROL 0.5/2.5MG 3 ML NEBU. NEB SCH ×3 (06:04→22:56)
[2019-06-15] MEDS: FLUTICASONE 50MCG/NASAL SPRAY 16GM BOTTLE. NS SCH (08:20)
[2019-06-15] MEDS: PANTOPRAZOLE 40 MG TABLET. PO SCH (08:21)
[2019-06-15] MEDS: LORazepam 0.5 MG TABLET PO SCH (08:21)
[2019-06-15] MEDS: BENZTROPINE MESYLATE 0.5 MG TABLET PO SCH ×2 (08:21→19:59)
[2019-06-15] MEDS: DOCUSATE SODIUM 100 MG CAPSULE PO SCH ×2 (08:21→19:58)
[2019-06-15] MEDS: QUEtiapine 50 MG TABLET. PO SCH ×2 (08:21→19:58)
[2019-06-15] MEDS: MULTIVITAMIN with MINERAL TABLET. PO SCH (08:21)
[2019-06-15] MEDS: LACTOBACILLUS RHAMNOSUS GG 1 CAPSULE. PO SCH ×2 (08:21→19:58)
[2019-06-15] MEDS: TOPIRAMATE 25 MG TABLET. PO SCH ×2 (08:22→19:58)
[2019-06-15] MEDS: CETIRIZINE HCL 10 MG TABLET PO SCH (08:22)
[2019-06-15] MEDS: FUROSEMIDE 20 MG TABLET PO SCH (08:22)
[2019-06-15] MEDS: BUDESONIDE 0.5 MG/2 ML NEBU NEB SCH ×2 (10:12→22:56)
[2019-06-15] MEDS: POLYVINYL ALCOHOL 1.4% OPHTH SOLUTION 15ML BOTTLE. OU PRN ×2 (11:54→20:02)
[2019-06-15 15:58] VITALS: BP 95/60
[2019-06-15] MEDS: MELATONIN 3 MG TABLET PO SCH (19:58)
[2019-06-15] MEDS: CYCLOBENZAPRINE 10 MG TABLET. PO SCH (19:58)
[2019-06-15] MEDS: traZODone 50 MG TABLET. PO SCH (19:58)
[2019-06-15] MEDS ORDERED: CETI10TA16 PO (23:31)
[2019-06-15] MEDS ORDERED: NICO1PAT25 TD (23:32)
[2019-06-15] MEDS ORDERED: METH28OI2 TP (23:33)
[2019-06-15] MEDS ORDERED: ACET325T21 PO (23:34)
[2019-06-15] MEDS ORDERED: FLUV25TA PO (23:36)
[2019-06-15] MEDS ORDERED: TRAZ-120 PO ×2 (23:37→23:40)
[2019-06-15] MEDS ORDERED: GUAI5SYR PO (23:44)
[2019-06-15] MEDS ORDERED: FLUT16SP21 NS (23:45)
[2019-06-15] MEDS ORDERED: POLY15DR27 OP (23:46)
[2019-06-15] MEDS ORDERED: MAG30ORA2 PO (23:47)
[2019-06-15] MEDS ORDERED: LOPE2TAB27 PO (23:48)
[2019-06-15] MEDS ORDERED: DOCU100C28 PO (23:49)
[2019-06-15] MEDS ORDERED: MAGN2400 PO (23:49)
[2019-06-15] MEDS ORDERED: POLY17PO5 PO (23:51)
[2019-06-15] MEDS ORDERED: ONDA4TAB12 PO (23:52)
[2019-06-15] MEDS ORDERED: LACT1CAP21 PO (23:53)
[2019-06-15] MEDS ORDERED: CHOL500021 PO (23:55)
[2019-06-16 06:02] VITALS: BP 96/62
--- NOTE | 2019-06-16 06:18 | PN ---
DATE: 06/15/2019 SUBJECTIVE: The patient was seen today. I met with the staff, chart reviewed. The patient continues to have difficulty with his behaviors including increased anxiety, not sleeping, also irritable and west and wants to be left alone. OBSERVATION: VITAL SIGNS: Temperature 96.9, blood pressure 111/72, pulse 83, respirations 20, O2 sat 96%. GENERAL: Slept about 8 hours last night. The patient's appetite is fair. LABORATORY DATA: The patient's lab is reviewed. MEDICATIONS: The patient's current medications include Luvox 75 mg at night, trazodone 50 mg at night, Cogentin 0.5 mg b.i.d., Topamax 5 mg b.i.d., Seroquel 150 mg b.i.d., melatonin 9 mg at night. The patient denies of any side effects. ASSESSMENT: 1. Schizoaffective disorder, bipolar type. 2. Obsessive compulsive disorder. PLAN: To continue with the treatment. LENGTH OF STAY: 4-[address] days[address] MARISA KATZ MD DR: REAL/junior JOB#: [id number] / [id number]
[2019-06-16] MEDS: QUEtiapine 50 MG TABLET. PO SCH (08:20)
[2019-06-16] MEDS: LORazepam 0.5 MG TABLET PO SCH (08:20)
[2019-06-16] MEDS: BENZTROPINE MESYLATE 0.5 MG TABLET PO SCH (08:20)
[2019-06-16] MEDS: PANTOPRAZOLE 40 MG TABLET. PO SCH (08:20)
[2019-06-16] MEDS: DOCUSATE SODIUM 100 MG CAPSULE PO SCH (08:20)
[2019-06-16] MEDS: LACTOBACILLUS RHAMNOSUS GG 1 CAPSULE. PO SCH (08:20)
[2019-06-16] MEDS: CETIRIZINE HCL 10 MG TABLET PO SCH (08:21)
[2019-06-16] MEDS: TOPIRAMATE 25 MG TABLET. PO SCH (08:21)
[2019-06-16] MEDS: FLUTICASONE 50MCG/NASAL SPRAY 16GM BOTTLE. NS SCH (08:21)
[2019-06-16] MEDS: FUROSEMIDE 20 MG TABLET PO SCH (08:21)
[2019-06-16] MEDS: MULTIVITAMIN with MINERAL TABLET. PO SCH (08:21)
[2019-06-16] MEDS: POLYVINYL ALCOHOL 1.4% OPHTH SOLUTION 15ML BOTTLE. OU PRN (08:24)
[2019-06-16] MEDS: IPRATRPIUM/ALBUTEROL 0.5/2.5MG 3 ML NEBU. NEB SCH (09:59)
[2019-06-16] MEDS: BUDESONIDE 0.5 MG/2 ML NEBU NEB SCH (09:59)
--- NOTE | 2019-06-16 15:57 | DS ---
DATE OF DISCHARGE: 06/16/2019 FINAL DIAGNOSES: AXIS I: 1. Schizoaffective disorder, bipolar type, mixed with psychotic features. 2. Obsessive compulsive disorder. 3. History of alcohol dependence, in partial remission. 4. Anxiety disorder, unspecified. AXIS II: None. AXIS III: Hypertension, chronic obstructive pulmonary disease, gastroesophageal reflux disease, seizure disorder, type 2 diabetes mellitus and migraine headaches. REASON FOR ADMISSION: This 64-year-old male was admitted from [facility] and referred by the primary care physician because of increased agitation, marked insomnia, also auditory hallucinations, which are command in nature. The patient is also getting very paranoid, suspicious, also refusing to eat and verbalizing suicidal ideation. The patient apparently failed outpatient treatment. CHIEF COMPLAINT: "I have been hearing voices for about 10-15 years. He used to drink very heavily in the past and I used to have blackouts, hallucinations, shakes and sometimes memory problems." HISTORY OF PRESENT ILLNESS: The patient has a diagnosis of schizoaffective disorder, bipolar type, mixed with psychotic features. The patient apparently had issues with his obsessive compulsive disorder. The patient has been hallucinating for quite some time, mostly auditorily ruminating thoughts, tend to perseverate. The patient is also very paranoid and suspicious, not trusting anyone around him. The patient also expressing suicidal thoughts and plans. HOSPITAL COURSE: The patient had a physical exam, routine lab work including CBC, chem profile, urinalysis. The patient's lab within the normal range except for hemoglobin A1c was 6.7. Glucose level fluctuated from 116 to 144. The patient's all other lab values within the normal range except for abnormal lipid profile. The patient is still having problems at times with increased anxiety, not able to sleep, also irritable, west. The patient was treated with Luvox 75 mg at night, trazodone 50 mg at night, Cogentin 0.5 mg b.i.d., Topamax 50 mg b.i.d., Seroquel 150 mg b.i.d., and melatonin 9 mg at night. The patient did not have any side effects. The patient's behavior improved. The patient did not have any falls. AFTERCARE PLAN: The patient was discharged to return to [facility] with the recommendation to continue with the above medications. The patient will continue to see the psychiatrist for his medications. MARISA KATZ MD DR: REAL/junior JOB#: [id number] / [id number]
== END 2019-06-16 12:38 | DRG 885 ==
LOC: ER 19:34 → GEROPSY 22:15
PROVIDERS: ADMIT Psychiatry & Neurology Psychiatry; ATTEND Psychiatry & Neurology Psychiatry
DX: F25.0 Schizoaffective disorder, bipolar type (principal); R45.851 Suicidal ideations; F41.9 Anxiety disorder, unspecified; J44.9 Chronic obstructive pulmonary disease, unspecified; G43.909 Migraine, unspecified, not intractable, without status migrainosus; K21.9 Gastro-esophageal reflux disease without esophagitis; E11.9 Type 2 diabetes mellitus without complications; G47.00 Insomnia, unspecified; Z79.899 Other long term (current) drug therapy; F10.21 Alcohol dependence, in remission; I10 Essential (primary) hypertension; G40.909 Epilepsy, unspecified, not intractable, without status epilepticus; F42.9 Obsessive-compulsive disorder, unspecified; K59.00 Constipation, unspecified; F12.90 Cannabis use, unspecified, uncomplicated
CPT/HCPCS: 36415; 70450; 71045; 80053; 80061; 81001; 82306; 82607; 83036; 83540; 83550; 83735; 84436; 84443; 84480; 85025; 85027; 86592; 87804; 93005; 94640; 94760; 99406; 99407; J7620; J7626; Q0162; 99285-25